=== PATIENT | female | born 1990 | race Caucasian/White ===

== ENCOUNTER → 2017-08-19 18:47 | Outpatient (CLI) | payer MEDICAID, SELFPAY ==
[2017-08-19 20:50] LABS: Chlamydia Trachomatis by PCR Negative (Negative); Neisserai gonorrhoeae by PCR Negative (Negative); Probe Check PASS; Sample Adequacy Control PASS; Specimen Processing Control PASS
[2017-08-22 14:18] LABS: HPV Reflexed? NOT INDICATED
== END ==
PROVIDERS: Visit Provider Obstetrics & Gynecology
DX: Z12.4 Encounter for screening for malignant neoplasm of cervix (principal); Z32.01 Encounter for pregnancy test, result positive; Z11.3 Encounter for screening for infections with a predominantly sexual mode of transmission
CPT/HCPCS: 87491; 87591; 88175; G0145

== ENCOUNTER → 2017-09-03 15:11 | Outpatient (CLI) | payer MEDICAID, SELFPAY ==
[2017-09-03 16:00] LABS: Color, Urine Yellow (Yellow); Glucose, Dipstick Normal (Normal); Ketone-Dipstick Negative (Negative); Leukocyte Esterase-Dipstick 500 /ul (Negative); Nitrite-Dipstick Negative (Negative); Occult Blood-Urine Negative /ul (Negative); Protein-Dipstick Negative (Negative); Specific Gravity, Urine 1.015 (1.002-1.030); Urine Bilirubin Dipstick Negative (Negative); Urine Clarity Sl. Cloudy (Clear); Urine Urobilinogen 1 mg/dl (Normal)
[2017-09-03 16:03] LABS: Absolute Lymphocyte Count 1.68 X10^3/ul (0.83-4.51); Absolute Neutrophil Count 5.2 X10^3/uL (2.0-7.7); Basophil# 0.01 X10^3/uL; Basophil% 0.1 % (0-1); Eosinophil# 0.11 X10^3/uL; Eosinophils% 1.5 % (0-5); Hematocrit 39.6 % (37-47); Hemoglobin 13.3 g/dl (12.0-15.0); Lymphocyte # 1.68 X10^3/ul (4.0); Lymphocyte % 22.5 % (19-41); Mean Corp Hgb Conc 33.6 g/gl (32-36); Mean Corpuscular Hgb 30.8 pg (27.0-32.0); Mean Corpuscular Volume 91.7 fL (81-99); Mean Platelet Vol. 12.8 fl (6.2-12.0); Monocyte# 0.43 X10^3/uL; Monocyte% 5.8 % (0-10); Neutrophil # 5.23 X10^3/uL (2.7-7.7); POSITIVE COUNT NO; POSITIVE DIFFERENTIAL NO; POSITIVE MORPHOLOGY NO; Platelet Count 120 K/mm3 (150-450); RBC Distribution Width CV 12.6 % (11.6-14.6); RBC Distribution Width SD 42.4 fl (35.1-43.9); Red Blood Count 4.32 M/mm3 (4.2-5.4); White Blood Count 7.5 K/mm3 (4.4-11.0)
[2017-09-03 16:27] LABS: Free T3 2.8 pg/mL (2.18-3.98); T4 Free Direct 0.89 ng/dL (0.76-1.46)
[2017-09-03 16:34] LABS: Amphetamine Urine VISTA NEGATIVE (<1000 ng/mL); Barbiturate Urine VISTA NEGATIVE (< 200 ng/mL); Benzodiazepine Urine VISTA NEGATIVE (< 200 ng/mL); COTININE Drug Screen Positive (<200 ng/mL); Cocaine Urine VISTA NEGATIVE (< 300 ng/mL); Ecstacy Urine VISTA NEGATIVE (< 500 ng/mL); Methadone Urine VISTA NEGATIVE (< 300 ng/mL); PCP Urine VISTA NEGATIVE (< 25 ng/mL); THC Urine VISTA NEGATIVE (< 50 ng/mL); Vista UDS pH Range 7
[2017-09-03 17:01] LABS: HIV - WCH Non-Reactive (Nonreactive); Rubella IgG 214.2 IU/mL
[2017-09-05 03:15] LABS: Prenatal RPR NONREACTIVE (NONREACTIVE)
[2017-09-05 09:04] LABS: HEPATITIS B SURFACE AG Negative (Negative); Hep C Antibodies <0.1 s/co ratio (0.0-0.9)
== END ==
PROVIDERS: Visit Provider Obstetrics & Gynecology
DX: Z34.81 Encounter for supervision of other normal pregnancy, first trimester (principal)
CPT/HCPCS: 36415; 80307; 81002; 84439; 84443; 84481; 85025; 86703; 86762; 86803; 87340

== ENCOUNTER → 2017-10-29 16:02 | Outpatient (CLI) | payer MEDICAID, SELFPAY ==
[2017-10-29 17:03] LABS: Hematocrit 35.8 % (37-47); Hemoglobin 12.2 g/dl (12.0-15.0); Mean Corp Hgb Conc 34.1 g/gl (32-36); Mean Corpuscular Hgb 30.6 pg (27.0-32.0); Mean Corpuscular Volume 89.7 fL (81-99); Mean Platelet Vol. 12.5 fl (6.2-12.0); Platelet Count 134 K/mm3 (150-450); RBC Distribution Width CV 13.3 % (11.6-14.6); RBC Distribution Width SD 43.6 fl (35.1-43.9); Red Blood Count 3.99 M/mm3 (4.2-5.4); White Blood Count 10.9 K/mm3 (4.4-11.0)
[2017-10-29 17:40] LABS: Scan Indicated on CBC? Y/N NO
== END ==
PROVIDERS: Visit Provider Obstetrics & Gynecology
DX: Z34.82 Encounter for supervision of other normal pregnancy, second trimester (principal)
CPT/HCPCS: 36415; 85027

== ENCOUNTER → 2017-12-24 15:03 | Outpatient (CLI) | payer MEDICAID, SELFPAY ==
[2017-12-24 17:21] LABS: Hemoglobin 12.6 g/dl (12.0-15.0); Mean Corpuscular Hgb 32.6 pg (27.0-32.0); Mean Platelet Vol. 12.4 fl (6.2-12.0); Platelet Count 127 K/mm3 (150-450); RBC Distribution Width CV 13.2 % (11.6-14.6); RBC Distribution Width SD 43.3 fl (35.1-43.9); Red Blood Count 3.87 M/mm3 (4.2-5.4); White Blood Count 12.5 K/mm3 (4.4-11.0)
[2017-12-24 17:25] LABS: Scan Indicated on CBC? Y/N NO
[2017-12-24 17:33] LABS: Free T3 2.3 pg/mL (2.18-3.98); Glucose Challenge Gest 1H 50g 82 mg/dL (70-140); T4 Free Direct 0.85 ng/dL (0.76-1.46); Thyroid Stim Hormone (TSH) 1.38 uIU/mL (0.358-3.74)
== END ==
PROVIDERS: Visit Provider Obstetrics & Gynecology
DX: Z34.83 Encounter for supervision of other normal pregnancy, third trimester (principal)
CPT/HCPCS: 36415; 82950; 84439; 84443; 84481; 85027

== ENCOUNTER → 2018-02-11 13:53 | Outpatient (CLI) | payer MEDICAID, SELFPAY ==
[2018-02-11 14:25] LABS: ROM Internal Control Test YES-OK TO RESULT pt. (Internal QC)
[2018-02-11 14:27] LABS: ROM Patient Test Negative (Negative)
[2018-02-11 15:40] LABS: Group B Strep DNA By PCR Negative (Negative); Internal Control PASS; Probe Check PASS; Specimen Processing Control PASS
== END ==
PROVIDERS: Visit Provider Obstetrics & Gynecology
DX: Z36.85 Encounter for antenatal screening for Streptococcus B (principal)
CPT/HCPCS: 84112; 87081; 87653

== ENCOUNTER 2018-02-11 20:57 | Outpatient (CLI) | payer MEDICAID, SELFPAY ==
[2018-02-11 21:17] VITALS: BMI 28.4
[2018-02-11 21:19] LABS: Mucous, Urine 0 SEEN /hpf (<or=2+)
[2018-02-11 21:27] LABS: Color, Urine Yellow (Yellow); Glucose, Dipstick Normal (Normal); Ketone-Dipstick Negative (Negative); Leukocyte Esterase-Dipstick 25 /ul (Negative); Nitrite-Dipstick Negative (Negative); Occult Blood-Urine 150 /ul (Negative); Protein-Dipstick Negative (Negative); Urine Bilirubin Dipstick Negative (Negative); Urine Clarity Clear (Clear); Urine Urobilinogen Normal (Normal)
[2018-02-11 21:36] LABS: Bacteria 2+ /hpf (None Seen); Red Blood Cells-Urine 0-5 SEEN /hpf (0-5); Squamous Epithelial Cells - UA 0-5 SEEN /hpf (5-10); White Blood Cells 0-5 SEEN /hpf (0-5)
[2018-02-11] MEDS: oxyCODONE 5 MG Tablet 10 MG PO (21:37)
--- NOTE | 2018-02-12 00:43 | OB.TRI.NOTE ---
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 No signs of SROm. Given PO oxycodone for pain and discharged home. Pain likely back pain due to head position.
--- NOTE | 2018-02-12 00:55 | OB.TRI.HP_ITS ---
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 No signs of SROm. Given PO oxycodone for pain and discharged home. Pain likely back pain due to head position.
== END 2018-02-11 22:40 | disposition home or self-care (01) ==
LOC: WPOUT 20:58 → WP 02-12 08:22
PROVIDERS: Visit Provider Obstetrics & Gynecology
DX: O26.893 Other specified pregnancy related conditions, third trimester (principal); R10.2 Pelvic and perineal pain; M54.9 Dorsalgia, unspecified
CPT/HCPCS: 59025; 59050; 81001; 84112; 87081; 87653; 99218; G0378

== ENCOUNTER 2018-02-19 20:45 | Outpatient (CLI) | payer MEDICAID, SELFPAY ==
[2018-02-19 21:14] VITALS: BMI 29.7
[2018-02-19 21:40] VITALS: RESP 18
--- NOTE | 2018-02-19 23:21 | OB.TRI.NOTE ---
History of Present Illness Date of Service: 02/19/18 Was patient seen by the physician?: No Reason For Visit: R/O LABOR Date of Service: 02/19/18 Final NIKKIE: 03/18/18 Final NIKKIE Source: US <20 weeks Gestational age: 36 Weeks and 1 Days History of Present Illness: 27 y o female at 36 1/7 wk presents with multiple somatic C/O. 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 C/O ankles swelling, fatigue, feeling like she is going to pass out. vaginal bleeding, passing clumps of blood (with discussion with nurse, this was mucousy glob, mucous plug with some bloody streaks) C/O back pain, maybe having UCs. Allergies adhesive tape Allergy (Verified 02/19/18 21:15) Itching codeine Allergy (Verified 02/19/18 21:15) Itching Physical Exam Vitals: Vital Signs Resp 18 02/19/18 21:40 Cervix Dilation (cm): 1 Station: -3 Effacement (%): 25 - RN check. NST - FHR Rate Baby A Baseline: 110-120s avg variability. + Accels to 160s Variability:: Moderate Accelerations:: 15 x 15 Decelerations:: None NST Reactive:: Yes, Appropriate for gestational age FHR Category:: Category I Uterine Activity:: No UCs noted Impression/Plan 36 1/7 wk false labor. Home NST reactive No UCs Comfort measures, rest, take Flexeril given for back pain in addition to tylenol prn Chiropractor again recommended for back / sciatic pain. Keep appt in ofc as scheduled. Return to hospital if inc s/sx of labor.
--- NOTE | 2018-02-19 23:25 | OB.TRI.HP_ITS ---
History of Present Illness Date of Service: 02/19/18 Was patient seen by the physician?: No Reason For Visit: R/O LABOR Date of Service: 02/19/18 Final NIKKIE: 03/18/18 Final NIKKIE Source: US <20 weeks Gestational age: 36 Weeks and 1 Days History of Present Illness: 27 y o female at 36 1/7 wk presents with multiple somatic C/O. 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 C/O ankles swelling, fatigue, feeling like she is going to pass out. vaginal bleeding, passing clumps of blood (with discussion with nurse, this was mucousy glob, mucous plug with some bloody streaks) C/O back pain, maybe having UCs. Allergies adhesive tape Allergy (Verified 02/19/18 21:15) Itching codeine Allergy (Verified 02/19/18 21:15) Itching Physical Exam Vitals: Vital Signs Resp 18 02/19/18 21:40 Cervix Dilation (cm): 1 Station: -3 Effacement (%): 25 - RN check. NST - FHR Rate Baby A Baseline: 110-120s avg variability. + Accels to 160s Variability:: Moderate Accelerations:: 15 x 15 Decelerations:: None NST Reactive:: Yes, Appropriate for gestational age FHR Category:: Category I Uterine Activity:: No UCs noted Impression/Plan 36 1/7 wk false labor. Home NST reactive No UCs Comfort measures, rest, take Flexeril given for back pain in addition to tylenol prn Chiropractor again recommended for back / sciatic pain. Keep appt in ofc as scheduled. Return to hospital if inc s/sx of labor.
== END 2018-02-19 21:40 | disposition home or self-care (01) ==
LOC: WPOUT 21:07 → WP 21:08
PROVIDERS: Visit Provider Obstetrics & Gynecology
DX: O47.03 False labor before 37 completed weeks of gestation, third trimester (principal); Z3A.36 36 weeks gestation of pregnancy
CPT/HCPCS: 59025; 59050; 99218; G0378

== ENCOUNTER 2018-02-21 22:40 | Outpatient (CLI) | payer MEDICAID, SELFPAY ==
[2018-02-21 22:59] LABS: Mucous, Urine 0 SEEN /hpf (<or=2+); Red Blood Cells-Urine 0 SEEN /hpf (0-5)
[2018-02-21 23:08] VITALS: BMI 28.8
[2018-02-21 23:09] LABS: Color, Urine Yellow (Yellow); Glucose, Dipstick Normal (Normal); Ketone-Dipstick Negative (Negative); Leukocyte Esterase-Dipstick 500 /ul (Negative); Nitrite-Dipstick Negative (Negative); Occult Blood-Urine Negative /ul (Negative); Protein-Dipstick 30 mg/dl (Negative); Urine Clarity Clear (Clear); Urine Urobilinogen 1 mg/dl (Normal)
[2018-02-21 23:14] LABS: Urine Bilirubin Dipstick 1 mg/dL (Negative)
[2018-02-21 23:15] LABS: White Blood Cells 0-5 SEEN /hpf (0-5)
[2018-02-21 23:16] LABS: Bacteria RARE /hpf (None Seen); Squamous Epithelial Cells - UA 0-5 SEEN /hpf (5-10)
[2018-02-21 23:35] LABS: ROM Internal Control Test YES-OK TO RESULT pt. (Internal QC); ROM Patient Test Negative (Negative)
--- NOTE | 2018-02-23 07:30 | OB.TRI.NOTE ---
History of Present Illness Was patient seen by the physician?: No Reason For Visit: R/O LABOR Date of Service: 02/21/18 Final NIKKIE: 03/18/18 Final NIKKIE Source: US <20 weeks Gestational age: 36 Weeks and 3 Days History of Present Illness: 36+ week intrauterine presents with some contractions to rule out labor. Allergies adhesive tape Allergy (Verified 02/21/18 23:09) Itching codeine Allergy (Verified 02/21/18 23:09) Itching NST - FHR Rate Baby A NST Reactive:: Yes FHR Category:: Category I Impression/Plan 36+ week intrauterine with reactive nonstress test and nonthreatening cervical examination. After observation no change noted. Urinalysis okay. Released to home with routine instructions and follow-up.
== END 2018-02-21 23:55 | disposition home or self-care (01) ==
LOC: WPOUT 22:51 → WP 22:52
PROVIDERS: Visit Provider Obstetrics & Gynecology
DX: Z34.93 Encounter for supervision of normal pregnancy, unspecified, third trimester (principal); Z88.5 Allergy status to narcotic agent
CPT/HCPCS: 59025; 59050; 81001; 84112; 99218; G0378

== ENCOUNTER 2018-02-23 18:40 | Outpatient (CLI) | payer MEDICAID, SELFPAY ==
[2018-02-23 19:17] VITALS: BMI 29.2
[2018-02-23 19:51] LABS: Bacteria 0 SEEN /hpf (None Seen); Mucous, Urine 0 SEEN /hpf (<or=2+); Red Blood Cells-Urine 0 SEEN /hpf (0-5); White Blood Cells 0 SEEN /hpf (0-5)
[2018-02-23] MEDS: Albuterol 2.5 MG/3 ML VIAL.NEB. INHALATION (20:11)
[2018-02-23 20:12] VITALS: RESP 16
[2018-02-23 20:15] LABS: Color, Urine Yellow (Yellow); Glucose, Dipstick Normal (Normal); Ketone-Dipstick Negative (Negative); Leukocyte Esterase-Dipstick Negative /ul (Negative); Nitrite-Dipstick Negative (Negative); Occult Blood-Urine Negative /ul (Negative); Protein-Dipstick Negative (Negative); Specific Gravity, Urine 1.005 (1.002-1.030); Urine Bilirubin Dipstick Negative (Negative); Urine Clarity Clear (Clear); Urine Urobilinogen Normal (Normal)
[2018-02-23] MEDS: Ondansetron ODT 4 MG Tablet 8 MG PO (20:26)
[2018-02-23 20:38] LABS: Squamous Epithelial Cells - UA 0-5 SEEN /hpf (5-10)
[2018-02-23 20:44] LABS: Hematocrit 33.8 % (37-47); Hemoglobin 11.3 g/dl (12.0-15.0); Mean Corp Hgb Conc 33.4 g/gl (32-36); Mean Corpuscular Hgb 30.5 pg (27.0-32.0); Mean Corpuscular Volume 91.1 fL (81-99); Mean Platelet Vol. 11.7 fl (6.2-12.0); Platelet Count 103 K/mm3 (150-450); RBC Distribution Width CV 13.8 % (11.6-14.6); Red Blood Count 3.71 M/mm3 (4.2-5.4)
[2018-02-23 20:50] LABS: Scan Indicated on CBC? Y/N NO
[2018-02-23] MEDS: MethylPREDNISolone DosePak 4 MG BOX 24 MG PO (20:50)
--- NOTE | 2018-02-24 07:38 | OB.TRI.NOTE ---
History of Present Illness Date of Service: 02/23/18 Was patient seen by the physician?: Yes Reason For Visit: R/O LABOR Date of Service: 02/23/18 Final NIKKIE: 03/18/18 Final NIKKIE Source: US <20 weeks Gestational age: 36 Weeks and 5 Days History of Present Illness: 27 yo female at 36 5/7 wk with multiple somatic c/o and in and out of hospital over the last week. Last appt in ofc 02/18/18 with PATRICIA 11.6 cm and approx 5 1/2# fetus noted , vtx presentation. Has been c/o back pain, pelvic pain. No UTI sx. C/O leg numbness today. No CC of back pain but states feeling of chest pressure, heaviness. Has h/o asthma and had not taken her Singulair for several days. Just picked up RX today to take this along with the Flexeril given for her back pain at last ofc visit. States chills, has not taken her temp. No cough, but states SOB and having problems d/t her asthma. Told triage nurse in ofc that she Feels like Tried her albuterol inhaler at home but still with CC of chest heaviness. Also c/o nausea and not able to eat anything, but able to keep down water. H/O thrombocytopenia. Due for Plt check also. Allergies adhesive tape Allergy (Verified 02/21/18 23:09) Itching codeine Allergy (Verified 02/21/18 23:09) Itching - Pertinent Past Medical History Medical History: Past Medical History (Last Updated 02/24/18 @ 07:42 by Madelin Zhao MD) Asthma affecting in third trimester Review of Systems Constitutional: Reports: Chills. Denies: Fever Eyes: Denies: Blurred vision Cardiovascular: Reports: Chest Pressure, Heaviness Respiratory: Denies: Cough, Sputum production Gastrointestinal: Reports: Abdominal Pain Genitourinary: Denies: Dysuria Physical Exam Vitals: Vital Signs Resp 16 02/23/18 20:12 General: Alert, Oriented x3, Cooperative, No apparent distress HEENT: Atraumatic Cardiovascular: Regular rate, Regular Rhythm Lungs: Rales, Rhonchi, Wheezes Abdomen: Soft, Non Tender, Gravid Neurological: Cranial nerves II-XII grossly intact Estimated gestational size: Appropriate for gestational size Presentation: Cephalic NST - FHR Rate Baby A Baseline: 120-130s with avg variability. Accels to 170s Variability:: Moderate Accelerations:: 15 x 15 Decelerations:: Variable - less than 10 sec to 100 with quick return NST Reactive:: Yes, Appropriate for gestational age FHR Category:: Category I Uterine Activity:: no regular UCs Impression/Plan #1) 36 5/7 wk EGA with acute asthmatic exacerbation. Just resumed her Singulair -CBC -Albuterol neb per RT tonight PAVITHRA -Medrol dose pack started tonight #2) Nausea --Xofran prn -- UA shows well hydrated, no ketones. HOME #3) Thrombocytopenia hx --CBC Plts 103K Will need close observation. Advised may consider induction for multiple somatic c/o related to , AFTER 39 wks. Keep ofc appt as scheduled.
== END 2018-02-23 21:30 | disposition home or self-care (01) ==
LOC: WPOUT 18:53 → WP 02-24 06:48
PROVIDERS: Obstetrics & Gynecology; Visit Provider Obstetrics & Gynecology
DX: O99.513 Diseases of the respiratory system complicating pregnancy, third trimester (principal); J45.901 Unspecified asthma with (acute) exacerbation; Z3A.36 36 weeks gestation of pregnancy; Z88.5 Allergy status to narcotic agent
CPT/HCPCS: 36415; 59025; 59050; 81001; 85027; 94640; 99218; G0378

== ENCOUNTER 2018-03-01 13:00 | Outpatient (CLI) | payer MEDICAID, SELFPAY ==
[2018-03-01 13:42] VITALS: BMI 28.9
[2018-03-01 14:01] LABS: ROM Internal Control Test YES-OK TO RESULT pt. (Internal QC); ROM Patient Test Negative (Negative)
--- NOTE | 2018-03-09 07:51 | OB.TRI.NOTE ---
History of Present Illness Date of Service: 03/01/18 Reason For Visit: R/O ROM Date of Service: 03/01/18 Final NIKKIE: 03/18/18 Final NIKKIE Source: US <20 weeks Gestational age: 37 Weeks and 3 Days History of Present Illness: presents with aches and pains, and ? SROM Allergies adhesive tape Allergy (Verified 03/09/18 05:33) Itching codeine Allergy (Verified 03/09/18 05:33) Itching - Pertinent Past Medical History Medical History: Past Medical History (Last Updated 02/24/18 @ 07:42 by Madelin Zhao MD) Asthma affecting in third trimester NST - FHR Rate Baby A Variability:: Moderate Accelerations:: 15 x 15 Decelerations:: None NST Reactive:: Yes FHR Category:: Category I Uterine Activity:: irreg UCs Impression/Plan 37 3/7 wk FALSE LABOR NEG ROM Musculoskeletal pains Home. Comfort measures.
== END 2018-03-01 14:25 | disposition home or self-care (01) ==
LOC: WPOUT 13:34 → WP 13:35
PROVIDERS: Visit Provider Obstetrics & Gynecology
DX: O47.1 False labor at or after 37 completed weeks of gestation (principal); Z3A.37 37 weeks gestation of pregnancy; Z88.5 Allergy status to narcotic agent
CPT/HCPCS: 59025; 59050; 84112; 99218; G0378

== ENCOUNTER 2018-03-05 19:27 | Outpatient (CLI) | payer MEDICAID, SELFPAY ==
[2018-03-05 19:50] VITALS: BMI 28.9
[2018-03-05 20:23] LABS: ROM Internal Control Test YES-OK TO RESULT pt. (Internal QC); ROM Patient Test Negative (Negative)
--- NOTE | 2018-03-05 23:00 | OB.TRI.NOTE ---
- Problem List (1) 38 weeks gestation of Status: Acute (2) False labor after 37 completed weeks of gestation Status: Acute History of Present Illness Date of Service: 03/05/18 Was patient seen by the physician?: No Reason For Visit: R/O SROM Date of Service: 03/05/18 Final NIKKIE: 03/18/18 Final NIKKIE Source: US <20 weeks Gestational age: 38 Weeks and 3 Days History of Present Illness: 27yo with c/o contractions and leaking of fluid. Allergies adhesive tape Allergy (Verified 03/05/18 19:52) Itching codeine Allergy (Verified 03/05/18 19:52) Itching - Pertinent Past Medical History Medical History: Past Medical History (Last Updated 02/24/18 @ 07:42 by Madelin Zhao MD) Asthma affecting in third trimester Physical Exam Cervix Dilation (cm): 2 - per RN Station: -2 Effacement (%): 60 NST - FHR Rate Baby A Baseline: 130 Variability:: Moderate Accelerations:: 15 x 15 Decelerations:: None NST Reactive:: Yes FHR Category:: Category I Uterine Activity:: 0/10 min Impression/Plan False labor at 38 weeks ROM plus neg d/c ane
== END 2018-03-05 21:30 | disposition home or self-care (01) ==
LOC: WPOUT 19:48 → WP 19:48
PROVIDERS: Visit Provider Obstetrics & Gynecology
DX: O47.1 False labor at or after 37 completed weeks of gestation (principal); Z3A.38 38 weeks gestation of pregnancy; Z88.5 Allergy status to narcotic agent
CPT/HCPCS: 59025; 59050; 84112; 99218; G0378

== ENCOUNTER 2018-03-09 04:54 | Inpatient (IN) | payer MEDICAID, SELFPAY ==
[2018-03-09 05:31] VITALS: BMI 28.6
[2018-03-09] MEDS: Lactated Ringers 1,000 ML 50 ML IV ×3 (05:35→10:14)
[2018-03-09 05:52] LABS: Hematocrit 36.4 % (37-47); Hemoglobin 12.4 g/dl (12.0-15.0); Mean Corp Hgb Conc 34.1 g/gl (32-36); Mean Corpuscular Hgb 31.2 pg (27.0-32.0); Mean Corpuscular Volume 91.7 fL (81-99); Mean Platelet Vol. 12.8 fl (6.2-12.0); Platelet Count 133 K/mm3 (150-450); RBC Distribution Width CV 13.6 % (11.6-14.6); RBC Distribution Width SD 44.9 fl (35.1-43.9); Red Blood Count 3.97 M/mm3 (4.2-5.4); White Blood Count 11.3 K/mm3 (4.4-11.0)
[2018-03-09 06:04] LABS: Scan Indicated on CBC? Y/N NO
[2018-03-09] MEDS: fentaNYL-bupivacaine (epidural) 100 ML BAG EPIDURAL ×2 (07:06→11:52)
[2018-03-09] MEDS: Oxytocin 30 units/NS 500 ml 30 UNITS/500 ML IV.SOLN IV (08:57)
[2018-03-09] MEDS: Oxytocin 30 units/NS 500 ml 30 UNITS/500 ML IV.SOLN 334 UNITS IV (13:01)
--- NOTE | 2018-03-09 13:13 | DCINST_ITS ---
Discharge Diet: No Restrictions Discharge Activity: May Shower, May Take a Tub Bath May resume sexual activity in: 4-6 weeks Additional Activity Instructions:: Nothing in the vagina for 4-6 weeks. You may return to work/school in 6 weeks. Call your doctor if you observe: Fever of 101 or Higher, Inability to urinate, Inability to have a bowel movement, Using more than one pad per hour Additional Instructions: If you experience any of the following, contact your healthcare provider. * Bleeding that soaks a pad every hour for 2 hours * Fever 100.4 or higher * Unrelieved incision or abdominal pain * Swelling, redness, discharge or bleeding from your incision or episiotomy site * Your incision begins to separate * Problems urinating (including inability to urinate or burning while urinating). * Visual changes * Severe headache * Flu-like symptoms * Pain or redness in one of both of your breasts * Pain, warmth, tenderness or swelling in your legs, especially the calf area * Frequent nausea and vomiting * Symptoms of depression or anxiety If you experience any of the following, call 911 or go to the nearest Emergency Room. * Chest pain * Problems breathing * Seizure activity * Partial or complete paralysis of a body part, slurred speech, weakness or drooping of the face, or a sudden inability to walk or hold your balance Allergies/Adverse Reactions: Allergies adhesive tape Allergy (Verified 03/09/18 05:33) Itching codeine Allergy (Verified 03/09/18 05:33) Itching Medications to take at Discharge Albuterol Inhaler 1 - 2 puff INHALATION Q4H PRN PRN 02/11/18 Montelukast [Singulair] 1 tab PO DAILY 02/11/18 Vits [Prenatabs FA] 1 tablet PO DAILY 02/19/18 Please Follow Up With: John Bright MD - [phone] When: Call to make an appointment with your doctor in 6 weeks. Primary Care Physician: Care Physician,No Primary [Primary Care Provider] - Test Results: Test results from this visit will be discussed in further detail at your follow- up appointment, if applicable.
--- NOTE | 2018-03-09 13:13 | OP.PCM_ITS ---
Vaginal Delivery Maternal Presentation: Active Labor Amniotic Membrane Rupture Type: Artificial Amniotic Fluid Description: Clear Final NIKKIE: 03/18/18 Final NIKKIE Source: US <20 weeks Gestational age: 38 Weeks and 5 Days Date of Procedure: 03/09/18 Pre-Operative Diagnosis: IUP Post-Operative Diagnosis: IUP Surgery/ Procedure Performed: Spontaneous Vaginal Delivery Type of Anesthesia: Epidural Description of Procedure: Spontaneous vaginal delivery of a viable female infant with Apgars of 8/9 from an occiput anterior presentation with clear amniotic fluid and normal three- vessel placenta. No episiotomy or lacerations. Sponge counts okay. Delivery physician: Fidel Gomez MD. Presentation: Vertex Placental Delivery Description: Spontaneous Placenta Disposition: [facility] Cord Vessel Description: 3 Vessels Cord Entanglement: None Estimated Blood Loss: 250 cc Infant A gender: Female (1 minute): 8 (5 minute): 9 Episiotomy Description: None Laceration: None Medications given after delivery: IV Pitocin Complications: None
[2018-03-09] MEDS: Oxytocin 30 units/NS 500 ml 30 UNITS/500 ML IV.SOLN 167 UNITS IV (13:31)
[2018-03-09] MEDS: 0.9% Saline Lock 10 ML Syringe IV (15:30)
[2018-03-09 21:09] VITALS: BP 114/62; PULSE 72; RESP 16; TEMP 36.6; O2SAT 95
[2018-03-09] MEDS: Ibuprofen 600 MG Tablet PO (21:25)
[2018-03-09] MEDS: Montelukast 10 MG Tablet PO (21:25)
[2018-03-10 00:05] VITALS: BP 107/47; PULSE 62; RESP 16; TEMP 37; O2SAT 95
[2018-03-10 03:58] VITALS: BP 116/52; PULSE 49; RESP 15; TEMP 36.6; O2SAT 96
[2018-03-10 08:00] VITALS: BP 119/60; PULSE 58; RESP 20; TEMP 36.6
--- NOTE | 2018-03-10 08:21 | PCM.PN.OB ---
Subjective: PPD#1 Doing well. Would like to go home. Daughter at home is missing hr, 2 yrs old. Bottle feeding Pain control adequate. No concerns voiced. - Physical Exam General: Alert, Oriented x3, Cooperative, No apparent distress HEENT: Atraumatic Neck: Supple Abdomen: Soft - Fundus firm NT at inferior to umbilicus Extremities: No clubbing, No cyanosis, No edema Neurological: Cranial nerves II-XII grossly intact Psych/Mental Status: Normal Affect Vital Signs Temp Pulse Resp BP Pulse Ox 97.9 F 49 L 15 116/52 L 96 03/10/18 03:58 03/10/18 03:58 03/10/18 03:58 03/10/18 03:58 03/10/18 03:58 Oxygen Delivery Method Room Air Weight: 78.018 kg Body Mass Index (BMI) 28.6 Intake and Output for Last 24 Hours 03/08/18 03/09/18 03/10/18 23:59 23:59 23:59 Intake Total 3803 / 3803 Output Total 1400 / 1400 Balance 2403 / 2403 Medical Necessity - Tobacco Use Smoking Status: Current every day smoker Assessment/Plan All Active Problems (Last Updated 02/24/18 @ 07:42 by Madelin Zhao MD) 38 weeks gestation of (Acute) False labor after 37 completed weeks of gestation (Acute) PPD#1 Stable pp. Dischg home today after infant screening completed. RTO in 6 wk for pp check as scheduled, prn sooner.
[2018-03-10 12:30] VITALS: BP 107/68; PULSE 67; RESP 16; TEMP 36.3
== END 2018-03-10 16:20 | disposition home or self-care (01) | DRG 373 ==
PROVIDERS: Admitting Provider Obstetrics & Gynecology; Visit Provider Obstetrics & Gynecology
DX: O99.334 Smoking (tobacco) complicating childbirth (principal); Z3A.38 38 weeks gestation of pregnancy; Z37.0 Single live birth
CPT/HCPCS: 59050; 85027; 86850; 86900; 99218; J7120; A4216; G0378

== ENCOUNTER → 2018-08-25 16:41 | Outpatient (CLI) | payer MEDICAID, SELFPAY ==
[2018-08-25 18:14] LABS: hCG Titer Quant., Serum < 1 mIU/mL (<9 non-preg)
[2018-08-25 18:21] LABS: Free T3 2.7 pg/mL (2.18-3.98); Thyroid Stim Hormone (TSH) 1.54 uIU/mL (0.358-3.74)
[2018-08-25 18:23] LABS: Progesterone Level 0.28 ng/mL (See Comment)
== END ==
PROVIDERS: Visit Provider Obstetrics & Gynecology
DX: R53.83 Other fatigue (principal); Z30.014 Encounter for initial prescription of intrauterine contraceptive device; Z30.8 Encounter for other contraceptive management
CPT/HCPCS: 36415; 84144; 84439; 84443; 84481; 84702

== ENCOUNTER → 2018-08-27 11:52 | Outpatient (CLI) | payer MEDICAID, SELFPAY ==
[2018-08-27 15:25] LABS: Chlamydia Trachomatis by PCR Negative (Negative); Neisserai gonorrhoeae by PCR Negative (Negative); Probe Check PASS; Sample Adequacy Control PASS; Specimen Processing Control PASS
== END ==
PROVIDERS: Visit Provider Obstetrics & Gynecology
DX: Z30.430 Encounter for insertion of intrauterine contraceptive device (principal); Z11.3 Encounter for screening for infections with a predominantly sexual mode of transmission
CPT/HCPCS: 87491; 87591

== ENCOUNTER → 2018-10-06 17:52 | Outpatient (CLI) | payer MEDICAID, SELFPAY ==
[2018-10-09 13:03] LABS: HPV Reflexed? NOT INDICATED
== END ==
PROVIDERS: Referring Provider Obstetrics & Gynecology; Visit Provider Obstetrics & Gynecology
DX: Z12.4 Encounter for screening for malignant neoplasm of cervix (principal)
CPT/HCPCS: 88175; G0145

== ENCOUNTER → 2020-04-14 13:30 | Outpatient (CLI) | payer MEDICAID, SELFPAY ==
[2020-04-18 03:07] LABS: Chlamydia By Nucleic Acid AMP Negative (Negative)
[2020-04-18 06:27] LABS: Gonococcus By Nucleic Acid AMP Negative (Negative)
== END ==
PROVIDERS: Visit Provider Obstetrics & Gynecology
DX: Z11.3 Encounter for screening for infections with a predominantly sexual mode of transmission (principal)
CPT/HCPCS: 87491; 87591

== ENCOUNTER 2023-08-14 16:52 | Outpatient (CLI) | payer MEDICAID, SELFPAY ==
[2023-08-14] VITALS (7 sets, daily range): BP systolic 121–142; BP diastolic 77–83; PULSE 56–68; RESP 18; TEMP 37; O2SAT 97; BMI 34.4
[2023-08-14 17:47] LABS: Hematocrit 32.8 % (37-47); Hemoglobin 10.9 g/dL (12.0-15.0); Mean Corp Hgb Conc 33.2 g/dL (32-36); Mean Corpuscular Hgb 29.5 pg (27.0-32.0); Mean Corpuscular Volume 88.9 fL (81-99); Mean Platelet Vol. 12.8 fl (6.2-12.0); Platelet Count 133 K/mm3 (150-450); RBC Distribution Width CV 13.9 % (11.6-14.6); Red Blood Count 3.69 M/mm3 (4.2-5.4); White Blood Count 10.5 K/mm3 (4.4-11.0)
[2023-08-14 17:59] LABS: AST(SGOT) 11 U/L (15-37); Alanine Aminotransfer ALT/SGPT 13 U/L (13-56); Creatinine, Serum 0.59 mg/dL (0.55-1.02); EST Glomerular Filtration Rate 124 mL/min (>60); Est Glom Filt Rate - Afr Amer 151 mL/min (>60); Estimated Creatinine Clearance 146.77 ml/min; Uric Acid 3.5 mg/dL (2.6-6.0)
[2023-08-14 18:02] LABS: Protein, Urine (Random) 12.7 mg/dL (<11.9); Protein:Creat Ratio 246 mg/g CRE (0-200)
--- OUTSIDE RECORDS SUMMARY | 2023-08-14 21:00 | XMS RPT_ITS | CCD ---
Author Name Unknown Address [address] [place] [address] Organization [facility] Care Team Providers Care Manager Community Name Role Phone ANGELA GARCIA Unavailable Unavailable SHAMA COOK Unavailable Unavailable LAUREN JEREZ CNP Unavailable UnavailANGELA Kohli Unavailable Unavailable JENNIFER HASTINGS DO Attending Unavailable JENNIFER HASTINGS DO Primary Care Unavailable JENNIFER HASTINGS DO Admitting Unavailable NO, DOCTOR ON Consulting Unavailable KEYSHAWN LOPES CNP Referring Unavailable KEYSHAWN LOPES CNP Consulting Unavailable JANY BUI Attending Unavailable JANY BUI Primary Care Unavailable JANY BUI Admitting Unavailable PROVIDER, UNKNOWN Consulting Unavailable PROVIDER, UNKNOWN Consulting Unavailable NO, DOCTOR ON Consulting Unavailable KEYSHAWN LOPES CNP Primary Care Unavailable KEYSHAWN LOPES CNP Admitting Unavailable KEYSHAWN LOPES CNP Attending Unavailable NO, DOCTOR ON Referring Unavailable NO, DOCTOR ON Consulting Unavailable JANY BUI Attending Unavailable JANY BUI Primary Care Unavailable JANY BUI M Admitting Unavailable KATIE CERNA DO Attending Unavailable KATIE CERNA DO Primary Care Unavailable KATIE CERNA DO Admitting Unavailable KEYSHAWN LOPES CNP Consulting Unavailable KEYSHAWN LOPES CNP Referring Unavailable PROVIDER, UNKNOWN Consulting Unavailable PROVIDER, UNKNOWN Consulting Unavailable Unavailable Primary Care Provider UnavailTAMICA Hernandez Consulting Unavailable BAYLEE BAIRD Admitting Unavailable BAYLEE BAIRD Attending Unavailable NWIZU, ALVIN CHERRY Attending Unavailabl e NWIZU, ALVIN CHERRY Admitting Unavailabl e NWIZU, ALVIN CHERRY Admitting Unavailabl e NWIZU, ALVIN CHERRY Attending Unavailabl e ADDI BURNS Referring Unavailable NWIZU, ALVIN CHERRY Admitting Unavailabl e NWIZU, ALVIN CHERRY Attending Unavailabl e IRA ALEXIS Attending Unavailable SELF Referring Unavailable MONIK GARCÍA Attending Unavailable MONIK GARCÍA Referring Unavailable ASHER WHARTON Attending Unavail able MONIK GARCÍA Referring Unavailable MARY BROWN Attending Unavailable ADDI BURNS Attending Unavailable ADDI BURNS Attending Unavailable MARY BROWN Attending Unavailable IRA ALEXIS Referring Unavailable JUSTINA PALAFOX Attending Unavailable ADDI BURNS Attending Unavailable MADELIN PAGE Attending Unavailable IRA ALEXIS Attending Unavailable Allergies Allergy Classification Reported Allergen(s) Allergy Type Date of Onset Reaction(s) Facility (3 sources) codeine; Translations: [CODEINE] Drug Allergy 7 [facility] Repository (1 source) Codeine Drug Allergy [facility] Repository (10 sources) Codeine Drug Allergy 3 Other: See Comments, Itching [facility] Work Phone: (5 sources) guaiFENesin; Translations: [GUAIFENESIN] Drug Allergy 4 Itching [facility] Medications Current Medications Medication Drug Class(es) Dates Sig (Normalized) Sig (Original) acetaminophen 325 mg / oxyCODONE hydrochloride 5 mg oral tablet (1 source) Opioid Agonist Start: 07-17-2023 End: 07-24-2023 take 1 tablet by mouth every six hours as needed for pain oxyCODONE-acetamin ophen (PERCOCET) 5-325 mg tablet Indications: 34 weeks gestation of , Flank pain , Acute right-sided back pain, unspecified back location Take 1 tablet by mouth every 6 hours as needed for pain for up to 7 days. 3 tablet 0 07/17/2023 07/24/2023 Active Completed/Discontinued Medications Medication Drug Class(es) Dates Sig (Normalized) Sig (Original) albuterol-budesonide HFA (AIRSUPRA) 90-80 mcg/actuation inhaler (2 sources) Start: 03-12-2023 albuterol-budesonid e HFA (AIRSUPRA) 90-80 mcg/actuation inhaler Take 2 Puffs by mouth as needed for wheezing/shortness of breath. 1 Each 1 03/12/2023 Active Problems Active Problems Problem Classification Problem Date Documented Date Episodic/Chronic Abdominal pain (4 sources) Flank pain; Translations: [Unspecified abdominal pain] Onset: 07-17-2023 07-17-2023 Episodic Complications of surgical procedures or medical care (2 sources) History of subtotal thyroidectomy; Translations: [Postprocedural hypothyroidism] Onset: 02-05-2023 02-05-2023 Chronic Diabetes mellitus without complication (4 sources) Increased glucose level; Translations: [Other abnormal glucose] Onset: 06-06-2023 07-17-2023 Episodic Diabetes or abnormal glucose tolerance complicating ; childbirth; or the puerperium (1 source) Abnormal glucose complicating ; Translations: [Abnormal maternal glucose tolerance, antepartum] Onset: 06-07-2023 Episodic External cause codes: Fall (1 source) Fall on same level from slipping, tripping and stumbling without subsequent striking against object, initial encounter; Translations: [Fall on same level from slipping, tripping and stumbling without subsequent striking against object, initial encounter] Onset: 12-21-2019 External cause codes: Unspecified (1 source) Activity, other specified; Translations: [Activity, other specified] Onset: 12-21-2019 Immunizations and screening for infectious disease (1 source) Patient encounter status; Translations: [Encounter for screening for human papillomavirus (HPV)] 02-05-2023 Episodic Other complications of (2 sources) Uncertain viability of ; Translations: [ with inconclusive viability, not applicable or unspecified] 02-05-2023 Episodic Other complications of (5 sources) Benign gestational thrombocytopenia; Translations: [Other diseases of the blood and blood-forming organs and certain disorders involving the immune mechanism complicating , third trimester] Onset: 07-17-2023 07-17-2023 Episodic Other complications of (4 sources) Reduced movement; Translations: [Decreased movements, third trimester, not applicable or unspecified] Onset: 07-17-2023 07-17-2023 Episodic Other complications of (1 source) High risk ; Translations: [Supervision of high risk , unspecified, third trimester] 08-07-2023 Episodic Other and delivery including normal (13 sources) Gestational age unknown ; Translations: [Encounter for supervision of normal , unspecified, unspecified trimester] Onset: 02-05-2023 3 Episodic Other screening for suspected conditions (not mental disorders or infectious disease) (2 sources) Encounter for screening for lipoid disorders; Translations: [Patient encounter status] Onset: 01-10-2020 02-05-2023 Episodic Other upper respiratory disease (1 source) Seasonal allergy; Translations: [Other seasonal allergic rhinitis] 03-12-2023 Chronic Residual codes; unclassified (1 source) Gestation period, 16 weeks; Translations: [16 weeks gestation of ] 03-12-2023 Episodic Residual codes; unclassified (1 source) Gestation period, 24 weeks; Translations: [24 weeks gestation of ] 05-08-2023 Episodic Residual codes; unclassified (4 sources) Gestation period, 34 weeks; Translations: [34 weeks gestation of ] Onset: 07-10-2023 07-17-2023 Episodic Residual codes; unclassified (1 source) 33 weeks gestation of ; Translations: [33 weeks gestation of ] Onset: 07-09-2023 Episodic Residual codes; unclassified (1 source) Gestation period, 37 weeks; Translations: [37 weeks gestation of ] 08-07-2023 Episodic Residual codes; unclassified (1 source) 24 weeks gestation of ; Translations: [24 weeks gestation of ] Onset: 06-05-2023 Episodic Spondylosis; intervertebral disc disorders; other back problems (4 sources) Backache; Translations: [Dorsalgia, unspecified] Onset: 07-17-2023 07-17-2023 Episodic Substance-related disorders (1 source) Nicotine dependence, cigarettes, uncomplicated; Translations: [NICOTINE DEPENDENCE, CIGARETTES, UNCOMPLICATED] Onset: 04-28-2017 Chronic Unclassified (1 source) Other specified postprocedural states; Translations: [OTHER SPECIFIED POSTPROCEDURAL STATES] Onset: 04-28-2017 Unclassified (3 sources) No additional problems on file Unclassified (1 source) OB 26 weeks, leaking fluid, contractions Onset: 05-29-2023 Past or Other Problems Problem Classification Problem Date Documented Da te Episodic/Chronic Allergic reactions (1 source) Allergy status to narcotic agent status; Translations: [ALLERGY STATUS TO NARCOTIC AGENT STATUS] Onset: 04-28-2017 Episodic Other complications of (1 source) with inconclusive viability, not applicable or unspecified; Translations: [ with uncertain viability, single or unspecified fetus] Onset: 02-05-2023 Episodic Other non-traumatic joint disorders (2 sources) Pain in left ankle and joints of left foot; Translations: [Pain in left ankle and joints of left foot] Onset: 12-21-2019 Episodic Other upper respiratory disease (1 source) Nasal congestion; Translations: [NASAL CONGESTION] Onset: 04-28-2017 Episodic Other upper respiratory infections (1 source) Acute sinusitis, unspecified; Translations: [ACUTE SINUSITIS, UNSPECIFIED] Onset: 04-28-2017 Episodic Sprains and strains (1 source) Sprain of unspecified ligament of left ankle, initial encounter; Translations: [Sprain of unspecified ligament of left ankle, initial encounter] Onset: 12-21-2019 Episodic Unclassified (1 source) FOOT INJURY AFTER FALL Onset: 12-04-2022 NEGATED: Highlighted row has been ruled out!Unclassified (2 sources) No known active problems 03-12-2023 Results Test Name Value Interpretation Reference Range Facil ity Vital Signs Date Time Vital Sign Value Performing Clinician Factracey litjesús 08-07-2023 16:02-0500 Body weight 90.08 kg Ira Alexis MD Work Phone: [facility] 08-07-2023 16:02-0500 Diastolic blood pressure 76 mm[Hg] Ira Alexis MD Work Phone: [facility] 08-07-2023 16:02-0500 Systolic blood pressure 120 mm[Hg] Ira Alexis MD Work Phone: [facility] 07-17-2023 15:44-0500 Body temperature 98.91 [degF] Madelin Page APRN.CERTIFIED LEGAL INVESTIGATOR Work Phone: [facility] 07-17-2023 15:44-0500 Body weight 86.64 kg Madelin Page APRN.CERTIFIED LEGAL INVESTIGATOR Work Phone: [facility] 07-17-2023 15:44-0500 Diastolic blood pressure 58 mm[Hg] Madelin Page APRN.CERTIFIED LEGAL INVESTIGATOR Work Phone: [facility] 07-17-2023 15:44-0500 Systolic blood pressure 120 mm[Hg] Madelin Page APRN.CERTIFIED LEGAL INVESTIGATOR Work Phone: [facility] 05-08-2023 08:14-0500 Body weight 81.74 kg Addi Burns MD Work Phone: [facility] 05-08-2023 08:14-0500 Diastolic blood pressure 68 mm[Hg] Addi Burns MD Work Phone: [facility] 05-08-2023 08:14-0500 Systolic blood pressure 112 mm[Hg] Addi Burns MD Work Phone: [facility] 03-12-2023 08:04-0400 Body weight 78.47 kg Mary Plotcandie RESIN FILTERER.CNM Work Phone: [facility] 03-12-2023 08:04-0400 Diastolic blood pressure 60 mm[Hg] Mary Plotts RESIN FILTERER.CNM Work Phone: [facility] 03-12-2023 08:04-0400 Systolic blood pressure 100 mm[Hg] Mary Plotcandie RESIN FILTERER.CNM Work Phone: [facility] 02-05-2023 07:59-0400 Body height 162.6 cm Monik García APRN.CERTIFIED LEGAL INVESTIGATOR Work Phone: [facility] 02-05-2023 07:59-0400 Body weight 78.93 kg Monik García APRN.CERTIFIED LEGAL INVESTIGATOR Work Phone: [facility] Encounters Encounter Date Encounter Type Care Provider Facility Start: 08-13-2023 ambulatory Ingrid Cook [facility] Procedures Date Procedure Procedure Detail Performing Clinician Start: 08-07-2023 URINE OB DIP B/O Ira espinosa MD Work Phone: Start: 07-17-2023 Urnls dip stick/tabl et rgnt auto w/o microscopy Madelin Page APRN.CERTIFIED LEGAL INVESTIGATOR Work Phone: Start: 07-17-2023 URINE OB DIP B/O Madelin Page APRN.CERTIFIED LEGAL INVESTIGATOR Work Phone: Start: 05-08-2023 URINE OB DIP B/O Addi Burns MD Work Phone: Start: 03-12-2023 URINE OB DIP B/O Samuel renee Trujillocandie RESIN FILTERER.ROMIANEM Work Phone: Start: 02-05-2023 Antibody screen IRA WOOD Plan of Treatment Date Care Activity Detail Author Start: 02-06-2028 HPV TESTING HPV TESTING [facility] Start: 06-19-2024 Covid-19 Vaccine (#1) Covid-19 Vacci ne (#1) [facility] Payers Date Payer Category Payer Medicaid [facility] MEDICAID [facility] MEDICAID [place] [id number] 2022-Present [phone] [address] [place] [address] Medicaid [id number] 2022 Medicaid [id number] 2016 Unknown [id number] 1989 Unknown [id number] 1989 Unknown [id number] 1989 Unknown [id number] 1989 Unknown [id number] Unknown [id number] Social History Date Type Detail Facility Tobacco smoking stat us ARIS Tobacco smoking consumption unknown [facility] Start: 1990 Sex Assigned At Not on file [facility] Start: 02-05-2023 End: 04-10-2023 Gender identity Not on file [facility] Start: 02-05-2023 End: 05-29-2023 Tobacco smoking status ARIS Smokes tobacco daily [facility] Work Phone: History of tobacco use Cigarette Smoker C [facility] Work Phone: Start: 02-05-2023 End: 04-10-2023 Cigarettes smoked current (pack per day) - Reported 0.5 [facility] Start: 02-05-2023 End: 05-29-2023 Tobacco use and exposure Smokeless tobacco non-user [facility] Work Phone: Start: 02-05-2023 End: 08-07-2023 Alcohol intake Ex-drinker (finding) [facility] Start: 12-04-2022 [facility] National Score (1-10 0), lower number is lower risk 62 [facility] Goals Date Patient Goal Desired Activity /State Personal health goal Clinical Notes 01-08-2023 to 08-13-2023 Ingrid Cruz MA - 08/13/2023 9:11 AM ESTPrenatal Quick Notes - Ira Alexis MD - 08/07/2023 4:10 PM ESTPatient InstructionsAddendum Note - Ira Alexis MD - 07/17/2023 5:20 PM EST Note Date & Type Note Facility 08-13-2023 Note Patient Outreach (NE TNAV) WALTER HOLLEY ([id number]) 1990 F Date Time Provider Department 08/13/23 INGRID CRUZ During your visit today, we recorded the following information about you: Ingrid Cruz MA 08/13/2023 10:15 AM Signed POPULATION HEALTH NAVIGATION OUTREACH Action/FYI Called and spoke with pt and confirmed pedodontist. Reason for Outreach Medicaid OB/Peds Patient Contacted: Spoke to patient/parent/or legal guardian Patient identified by name and : Yes Medicaid OB/Peds actions taken: /Interactive Media Marketing Director added Navigation Signature: Ingrid Bonds MA August 13, 2023 9:12 AM Allergies As of Date: 08/13/2023 Noted Allergy Reaction CODEINE 02/05/2023 9 - Itching 14 - Other: See Comments Comments: Only to codeine cough syrup - hives COUGH SYRUP (GUAIFENESIN) 07/09/2023 9 - Itching Date Reviewed: 08/10/2023 Reviewed by: Theodore Up RN - Fully Assessed Reason for Visit: Population Health Navigation Outreach [3910] Cmt: OB/peds Prescriptions as of 08/13/2023 - Omeprazole Magnesium 20 mg cpDR Take 1 capsule by mouth two times a day as needed (heartburn). - vit37/iron/folic acid (PRENATA ORAL) Take 1 tablet by mouth twice daily. gummy Problem List As Of Date 08/13/2023 Noted Resolved Supervision of other normal , antepart*04/10/2023 Elevated glucose [R73.09] 06/06/2023 34 weeks gestation of [Z3A.34] 07/10/2023 Gestational thrombocytopenia (HCC) [O99.119, D6*07/17/2023 Acute right-sided back pain [M54.9] 07/17/2023 Flank pain [R10.9] 07/17/2023 Decreased movements in third trimester [O*07/17/2023 Encounter Status:Closed by INGRID CRUZ on 08/13/23 [facility] 08-13-2023 Note HNO ID: [id number] Author: INGRID CRUZ MA Service: ? Author Type: Teacher Theater Arts Type: Progress Notes Filed: 08/13/2023 10:15 Note Text: POPULATION HEALTH NAVIGATION OUTREACH Action/FYI Called and spoke with pt and confirmed pedodontist. Reason for Outreach Medicaid OB/Peds Patient Contacted: Spoke to patient/parent/or legal guardian Patient identified by name and : Yes Medicaid OB/Peds actions taken: [place]/Interactive Media Marketing Director added Navigation Signature: Ingrid Bonds MA August 13, 2023 9:12 AM [facility] 08-13-2023 History of Presen t illness Narrative POPULATION HEALTH NAVIGATION OUTREACH Action/FYI Called and spoke with pt and confirmed pedodontist. Reason for Outreach Medicaid OB/Peds Patient Contacted: Spoke to patient/parent/or legal guardian Patient identified by name and : Yes Medicaid OB/Peds actions taken: [place]/Interactive Media Marketing Director added Navigation Signature: Ingrid Bonds MA August 13, 2023 9:12 AM documented in this encounter [facility] 08-10-2023 Note HNO ID: [id number] Author: MADELIN RIOS, RN Service: ? Author Type: Registered Nurse Type: Nursing Progress Note Filed: 08/10/2023 19:59 Note Text: Lab at bedside. Pt updated on [facility] 08-07-2023 Miscellaneous Notes SW- No ALVAREZ, vision changes. No regular ctx, vb, lof. Good FM. Having some irregular ctx's. Flank pain resolved. No urinary symptoms PE: Gen- NAD, well appearing Abd- Soft, gravid, NT +FHT S=D See flowsheet A/p 37 wk gestation - Labor precautions reviewed - Pt interested in elective IOL ~39-40 weeks - RTO 1 wk Ira Alexis DO documented in this encounter [facility] 08-07-2023 Instructions Riley Houston MA - 08/07/2023 4:01 PM EST SEQUENTIAL SCREENINGS The [facility] offers sequential screenings for women who are interested in screenings for chromosomal abnormalities and certain defects during a . The sequential screen combines ultrasound and blood tests to determine the risk of chromosomal abnormalities, including Down's Syndrome (Trisomy 21) and Trisomy 18, as well as open neural tube defects including spina bifida. Ultrasound examination is performed between 11 weeks and 13 weeks gestational age. Blood tests are drawn after the ultrasound and again later in the between 15 and 21 weeks gestational age. Please let your physician know if you are interested in this testing. It will require an appointment with our restorative care technician. This is not an ultrasound performed by a physician in our office during a routine visit. SIGNS AND SYMPTOMS OF LABOR 1. Contractions every 10 minutes or more often 2. Clear, pink, or brownish fluid (water) leaking from vagina 3. Feeling that baby is pushing down, pressure 4. Low, dull backache 5. Cramps that feel like a period 6. Cramps with or without diarrhea If you notice any of the above symptoms, contact our office at [phone] and ask to speak with a nurse. After hours, you can call doctors registry at [phone] OR call [facility] at [phone] and ask to have the doctor contract forester paged. If you consider this an emergency, dial 9--1 or go to your nearest emergency department. NEED HELP? Are you dealing with a violent or abusive relationship? Are you a victim of rape or sexual assult? Call [facility] ([place]) 24 hour Crisis Hotline: 706.924.3971 or 068-959-7538. MANUAL Your Guide to a Healthy manual is now on-line. Visit [email or web address] to download your free copy documented in this encounter [facility] 07-27-2023 Note HNO ID: [id number] Author: ALVIN DILLARD MD Service: Obstetrics Author Type: Registered Nurse Type: Procedures Filed: 07/28/2023 09:32 Note Text: Attestation signed by Alvin Dillard MD at 07/28/2023 9:32 AM OBSTETRICS MONITORING ASSESSMENT NST Interpretation: FHR Category: 1 (07/27/23 1500 : Darlyn Valdez RN) Disposition: PROVIDER INTERPRETATION: Reactive SIGNATURE: Alvin Dillard MD PATIENT NAME: Walter Holley DATE: July 28, 2023 TIME: 9:31 AM OBSTETRICS NST SUMMARY SERVICE DATE: July 28, 2023 The patient is a 33 year old female, , who is at 35w5d with an NIKKIE of 08/27/2023, by Last Menstrual Period dating method. NST OBJECTIVE FINDINGS PER NURSE: Start Time: Complete Time: Indications: Patient Reason For: NST Explanation: Acoustic Stimulator: Interventions: MONITORING/ASSESSMENT: Baseline: Variability: Accelerations: Decelerations: Contractions: Frequency: Above information forwarded to for final review and interpretation. SIGNATURE: Ciara Melendez RN PATIENT NAME: Walter Holley DATE: July 28, 2023 TIME: 9:29 AM [facility] 07-27-2023 Note HNO ID: [id number] Author: DARLYN VALDEZ RN Service: Obstetrics Author Type: Registered Nurse Type: Nursing Progress Note Filed: 07/27/2023 15:58 Note Text: LABS COMPLETED AND US HERE. PATIENT TO US ROOM. [facility] 07-17-2023 Note HNO ID: [id number] Author: MADELIN PAGE APRN.CNP Service: ? Author Type: Nurse Practitioner Type: Procedures Filed: 07/17/2023 16:59 Note Text: NST SUMMARY PROVIDER ASSESSMENT AND INTERPRETATION Indications for NST: Decreased Movement Baseline: 130 Variability: Moderate Accelerations: Present 15 X 15 Decelerations: None Interpretation: Reactive SIGNATURE: Madelin Page APRN.CERTIFIED LEGAL INVESTIGATOR, Dr. Alexis [facility] 07-17-2023 Miscellaneous Notes Addended by: IRA ALEXIS on: 07/17/2023 05:20 PM Modules accepted: Orders S: Walter is a 33 year old female who presents at 34w1d for a routine visit. Feeling movement. Denies headache, visual changes, chest pain, shortness of breath, vaginal bleeding, leakage of fluid, or dysuria. Reports back pain that is radiating to the front, occurring every 20 minutes. Rates it as a 9/10. Visibly uncomfortable today. Denies burning with urination. Has noticed some pink mucus vaginally that has been occurring since yesterday. Pain has been present for a week. Was in ER for 07/09 for right sided back pain that was treated with oral Keflex. She was admitted overnight. Finished Keflex on 07/10. O: See flow sheet Gen: No apparent distress Abd: Gravid, nontender, S=D ASSESSMENT/PLAN: 1. Supervision of other normal , antepartum - ICD9: V22.1, ICD10: Z34.80 (primary diagnosis) 2. 34 weeks gestation of - ICD9: V22.2, ICD10: Z3A.34 - URINE OB DIP B/O 3. Benign gestational thrombocytopenia in third trimester (HCC) - ICD9: 649.33, 287.5, ICD10: O99.113, D69.6 4. Elevated glucose - ICD9: 790.29, ICD10: R73.09 - 1 hour elevated - 3 hour WNL 5. Flank pain - ICD9: 789.09, ICD10: R10.9 6. Acute right-sided back pain, unspecified back location - ICD9: 724.5, ICD10: M54.9 - Was treated in ER 07/09 with Rocephin and d/c on oral Keflex - Suspect possible kidney stone - Denies fever or chills - Right sided CVA tenderness - CONSULT TO UROLOGY and plan for ultrasound. Ultrasound scheduled for tomorrow at 4:30 with [facility] - Increase hydration - Dr. Alexis consulted, physically saw patient, and offered admission to hospital. Patient declines. 3 tablets of Percocet rx by Dr. Alexis for pain. 7. Decreased movements in third trimester, single or unspecified fetus - ICD9: 655.73, ICD10: O36.8130 - NST today reactive Madelin Page APRN.CNP documented in this encounter [facility] 07-17-2023 Procedure note NST SUMMARY PROVIDER ASSESSMENT AND INTERPRETATION Indications for NST: Decreased Movement Baseline: 130 Variability: Moderate Accelerations: Present 15 X 15 Decelerations: None Interpretation: Reactive SIGNATURE: Madelin Page APRN.CNP, Dr. Alexis documented in this encounter [facility] 07-17-2023 Instructions Mary Ellen Serna RN - 07/17/2023 3:35 PM EST [facility] Renal Ultrasound appointment on 07/18 @ 4:30 PM Arrive 15 min early. 1st floor Diagnostics SEQUENTIAL SCREENINGS The [facility] offers sequential screenings for women who are interested in screenings for chromosomal abnormalities and certain defects during a . The sequential screen combines ultrasound and blood tests to determine the risk of chromosomal abnormalities, including Down's Syndrome (Trisomy 21) and Trisomy 18, as well as open neural tube defects including spina bifida. Ultrasound examination is performed between 11 weeks and 13 weeks gestational age. Blood tests are drawn after the ultrasound and again later in the between 15 and 21 weeks gestational age. Please let your physician know if you are interested in this testing. It will require an appointment with our restorative care technician. This is not an ultrasound performed by a physician in our office during a routine visit. SIGNS AND SYMPTOMS OF LABOR 1. Contractions every 10 minutes or more often 2. Clear, pink, or brownish fluid (water) leaking from vagina 3. Feeling that baby is pushing down, pressure 4. Low, dull backache 5. Cramps that feel like a period 6. Cramps with or without diarrhea If you notice any of the above symptoms, contact our office at [phone] and ask to speak with a nurse. After hours, you can call doctors registry at [phone] OR call [facility] at [phone] and ask to have the doctor contract forester paged. If you consider this an emergency, dial [phone]- or go to your nearest emergency department. NEED HELP? Are you dealing with a violent or abusive relationship? Are you a victim of rape or sexual assult? Call [facility] ([facility] 24 hour Crisis Hotline: 566.510.6927 or 201-045-7169. MANUAL Your Guide to a Healthy manual is now on-line. Visit [email or web address] to download your free copy documented in this encounter [facility] 05-08-2023 Miscellaneous Notes KJ - VB No. LOF No. CTXS Yes - rare & mild. Movement: present. Other c/o: No. Medication list reviewed. Physical Exam See Flow Sheet Gen: no accute distress, well appearing Abd: soft, nontender, gravid A/P 24w1d Estimated Date of Delivery: 08/27/23 28wk labs ordered PTL & FM precautions reviewed. Addi Burns MD documented in this encounter [facility] 05-08-2023 Instructions s Saira Schmidt - 05/08/2023 8:09 AM EST SEQUENTIAL SCREENINGS The [facility] offers sequential screenings for women who are interested in screenings for chromosomal abnormalities and certain defects during a . The sequential screen combines ultrasound and blood tests to determine the risk of chromosomal abnormalities, including Down's Syndrome (Trisomy 21) and Trisomy 18, as well as open neural tube defects including spina bifida. Ultrasound examination is performed between 11 weeks and 13 weeks gestational age. Blood tests are drawn after the ultrasound and again later in the between 15 and 21 weeks gestational age. Please let your physician know if you are interested in this testing. It will require an appointment with our restorative care technician. This is not an ultrasound performed by a physician in our office during a routine visit. SIGNS AND SYMPTOMS OF LABOR 1. Contractions every 10 minutes or more often 2. Clear, pink, or brownish fluid (water) leaking from vagina 3. Feeling that baby is pushing down, pressure 4. Low, dull backache 5. Cramps that feel like a period 6. Cramps with or without diarrhea If you notice any of the above symptoms, contact our office at [phone] and ask to speak with a nurse. After hours, you can call [facility] at [phone] OR call [facility] at [phone] and ask to have the doctor contract forester paged. If you consider this an emergency, dial 9-1-6 or go to your nearest emergency department. NEED HELP? Are you dealing with a violent or abusive relationship? Are you a victim of rape or sexual assult? Call [facility] ([place]) 24 hour Crisis Hotline: 865.220.7153 or 773-233-2229. MANUAL Your Guide to a Healthy manual is now on-line. Visit [email or web address] to download your free copy documented in this encounter [facility] 04-14-2023 Miscellaneous Notes 2nd risk assessment form submitted 04/14/23 Mimi Peralta RN documented in this encounter [facility] 03-12-2023 Miscellaneous Notes Received denial for inhaler. [place] through [employer] is $8. Pt notified and was agreeable to pay out of pocket. Suzanna Art LPN [employer] submitted for inhaler. Will await further response from pt's insurance. Suzanna Art LPN documented in this encounter [facility] 03-12-2023 Miscellaneous Notes S: Walter Holley is a 32 year old female who presents at 16 weeks gestation for a routine visit. Just started flutters. Having issues with allergies. Requesting Singulair and Albuterol inhaler. Stated she usually has to use both during . Denies headache, visual changes, chest pain, shortness of breath, vaginal bleeding, leakage of fluid, or dysuria. Feeling well, no complaints. O: See flow sheet Gen: No apparent distress Abd: Gravid, nontender ASSESSMENT/PLAN: 1. 16 weeks gestation of - ICD9: V22.2, ICD10: Z3A.16 (primary diagnosis) - URINE OB DIP B/O 2. Encounter for supervision of normal in multigravida - ICD9: V22.1, ICD10: Z34.80 3. Seasonal allergies - Rx sent for Singulair 10 mg PO Daily and Albuterol inhaler - PRN RTO- 3-4 weeks for anatomy US and ANDREW Brown APRN.CNM documented in this encounter [facility] 03-12-2023 Instructions Ingrid Solomon MA - 03/12/2023 7:59 AM EDT SEQUENTIAL SCREENINGS The [facility] offers sequential screenings for women who are interested in screenings for chromosomal abnormalities and certain defects during a . The sequential screen combines ultrasound and blood tests to determine the risk of chromosomal abnormalities, including Down's Syndrome (Trisomy 21) and Trisomy 18, as well as open neural tube defects including spina bifida. Ultrasound examination is performed between 11 weeks and 13 weeks gestational age. Blood tests are drawn after the ultrasound and again later in the between 15 and 21 weeks gestational age. Please let your physician know if you are interested in this testing. It will require an appointment with our restorative care technician. This is not an ultrasound performed by a physician in our office during a routine visit. SIGNS AND SYMPTOMS OF LABOR 1. Contractions every 10 minutes or more often 2. Clear, pink, or brownish fluid (water) leaking from vagina 3. Feeling that baby is pushing down, pressure 4. Low, dull backache 5. Cramps that feel like a period 6. Cramps with or without diarrhea If you notice any of the above symptoms, contact our office at [phone] and ask to speak with a nurse. After hours, you can call doctors registry at [phone] OR call [facility] at [phone] and ask to have the doctor contract forester paged. If you consider this an emergency, dial 9-- or go to your nearest emergency department. NEED HELP? Are you dealing with a violent or abusive relationship? Are you a victim of rape or sexual assult? Call [facility] ([place]) 24 hour Crisis Hotline: 684.516.3363 or 977-638-4041. MANUAL Your Guide to a Healthy manual is now on-line. Visit [email or web address] to download your free copy documented in this encounter [facility] 02-11-2023 Miscellaneous Notes 1st risk assessment form submitted February 11, 2023. Baylee Griffiths RN documented in this encounter [facility] 02-06-2023 Note HNO ID: [id number] Author: Asher Wharton MD Service: ? Author Type: Physician Type: Progress Notes Filed: 02/06/2023 1:40 PM Note Text: OB point of care ultrasound was performed. See imaging tab for details. Asher Soto MD [facility] 02-06-2023 History of Presen t illness Narrative OB point of care ultrasound was performed. See imaging tab for details. Asher Soto MD documented in this encounter [facility] 02-05-2023 Note HNO ID: [id number] Author: Monik García APRN.CERTIFIED LEGAL INVESTIGATOR Service: ? Author Type: Nurse Practitioner Type: Progress Notes Filed: 02/05/2023 9:34 AM Note Text: INITIAL OB ASSESSMENT HPI: Walter is a 32 year old No obstetric history on file. White here to establish Obstetrical Care. Patient's last menstrual period was 11/20/2022 (approximate). from OB Dating Form. Cycles regular was unplanned but accepted Complaints: None OB History T3 L3 SAB0 IAB0 Ectopic0 Multiple0 Live Births3 Previous history: Prior : never History of 4th degree laceration: No History of shoulder dystocia: No History of Hypertensive disorders including pre-eclampsia, chronic hypertension or gestational hypertension: No History of gestational diabetes: No Patient's Risk Screening for delivery: none Have you had a prior oswald between 20w and 36w6d?: No MEDICAL/PSYCHOSOCIAL HISTORY: History of hemorrhage or bleeding concerns: No Thyroid Disease: Yes- history thyroid cancer with right thyroidectomy with subsequent normal thyroid labs History of chronic hypertension: No History of pre-existing diabetes: No No results found for: ABORHD BMI 29.87 kg/(m2) History of abnormal pap: No Prior treatment for cervical dysplasia: none. History of STDs: None Tobacco use: Yes - 1/2 ppd Caffeine use: Yes 3 cups coffee/day Drug use: No Alcohol use: Not with Multivitamin with Folic acid: Yes Buddhist or heritage: No Would refuse blood transfusion if medically necessary: No Are you currently employed? No Do you have any history of depression, anxiety, PTSD, eating disorders or other mood problems: No Do you have any safety concerns or history of traumatic events that you would like to discuss with your provider: No How often does this describe you? I don't have enough money to pay my bills: Never Within the past 12 months, have you worried that your food would run out before you had money to buy more: Never In the past 12 months, has lack of reliable transportation kept you from going to medical appointments or work, or from keeping things needed for daily living: Never In the past 12 months, have you had any concerns about having a place to live, or about the condition or quality of your housing: Never Are there any cultural or spiritual needs we should be aware of: No Depression: denies symptoms of depression. OB Depression and Anxiety Screening- This Encounter (since 02/04/2023) Over the past 2 weeks have you felt down, depressed, or hopeless? Negative Over the past two weeks, have you felt little interest or pleasure in doing things?? 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 vit37/iron/folic acid (PRENATA ORAL) Take 1 tablet by mouth twice daily. gummy No current facility-administered medications for this visit. Allergies As of Date: 02/05/2023 Allergen Noted Reaction CODEINE 02/05/2023 Other: See Comments Fully Assessed 02/05/2023 Does patient have penicillin allergy: No REVIEW OF SYSTEMS: GENERAL: Negative for: Fever or Chills HEENT: Negative for: Headache, Impaired Vision, Ringing in Ears, Nosebleeds NECK: Negative for: Swelling, Pain, Stiffness RESPIRATORY: Negative for: Cough, Shortness of breath, Wheezing GASTROINTESTINAL: Negative for: Heartburn, Constipation, Diarrhea, Blood in stool, Vomiting MUSCULOSKELETAL: Negative for: Muscle or joint pain, stiffness, Joint swelling NEUROLOGIC/PSYCHIATRIC: Negative for: Weakness, Paralysis, Numbness, Tingling, Tremor, Anxiety, Depression, Memory loss SKIN: Negative for: Rash, Itching GENITOURINARY: Negative for: vaginal itching, vaginal discharge, hematuria or dysuria PHYSICAL EXAM: Ht 5' 4 (1.63m) Wt 174 lb (78.9kg) LMP 11/20/2022 BMI 29.85 kg/(m2). GENERAL: pleasant in no apparent distress DERMATOLOGY: Normal, non-icteric, non-hirsute, and skin colored raised fluctuant area be (more content not included)... [facility] 02-05-2023 History of Presen t illness Narrative INITIAL OB ASSESSMENT HPI: Walter is a 32 year old No obstetric history on file. White here to establish Obstetrical Care. Patient's last menstrual period was 11/20/2022 (approximate). from OB Dating Form. Cycles regular was unplanned but accepted Complaints: None OB History T3 L3 SAB0 IAB0 Ectopic0 Multiple0 Live Births3 Previous history: Prior : never History of 4th degree laceration: No History of shoulder dystocia: No History of Hypertensive disorders including pre-eclampsia, chronic hypertension or gestational hypertension: No History of gestational diabetes: No Patient's Risk Screening for delivery: none Have you had a prior oswald between 20w and 36w6d?: No MEDICAL/PSYCHOSOCIAL HISTORY: History of hemorrhage or bleeding concerns: No Thyroid Disease: Yes- history thyroid cancer with right thyroidectomy with subsequent normal thyroid labs History of chronic hypertension: No History of pre-existing diabetes: No No results found for: ABORHD BMI 29.87 kg/(m^2) History of abnormal pap: No Prior treatment for cervical dysplasia: none. History of STDs: None Tobacco use: Yes - 1/2 ppd Caffeine use: Yes 3 cups coffee/day Drug use: No Alcohol use: Not with Multivitamin with Folic acid: Yes Buddhist or heritage: No Would refuse blood transfusion if medically necessary: No Are you currently employed? No Do you have any history of depression, anxiety, PTSD, eating disorders or other mood problems: No Do you have any safety concerns or history of traumatic events that you would like to discuss with your provider: No How often does this describe you? I don't have enough money to pay my bills: Never Within the past 12 months, have you worried that your food would run out before you had money to buy more: Never In the past 12 months, has lack of reliable transportation kept you from going to medical appointments or work, or from keeping things needed for daily living: Never In the past 12 months, have you had any concerns about having a place to live, or about the condition or quality of your housing: Never Are there any cultural or spiritual needs we should be aware of: No Depression: denies symptoms of depression. OB Depression and Anxiety Screening- This Encounter (since 02/04/2023) Over the past 2 weeks have you felt down, depressed, or hopeless? Negative Over the past two weeks, have you felt little interest or pleasure in doing things? 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 vit37/iron/folic acid (PRENATA ORAL) Take 1 tablet by mouth twice daily. gummy No current facility-administered medications for this visit. Allergies As of Date: 02/05/2023 Allergen Noted Reaction CODEINE 02/05/2023 Other: See Comments Fully Assessed 02/05/2023 Does patient have penicillin allergy: No REVIEW OF SYSTEMS: GENERAL: Negative for: Fever or Chills HEENT: Negative for: Headache, Impaired Vision, Ringing in Ears, Nosebleeds NECK: Negative for: Swelling, Pain, Stiffness RESPIRATORY: Negative for: Cough, Shortness of breath, Wheezing GASTROINTESTINAL: Negative for: Heartburn, Constipation, Diarrhea, Blood in stool, Vomiting MUSCULOSKELETAL: Negative for: Muscle or joint pain, stiffness, Joint swelling NEUROLOGIC/PSYCHIATRIC: Negative for: Weakness, Paralysis, Numbness, Tingling, Tremor, Anxiety, Depression, Memory loss SKIN: Negative for: Rash, Itching GENITOURINARY: Negative for: vaginal itching, vaginal discharge, hematuria or dysuria PHYSICAL EXAM: Ht 5' 4 (1.63m) Wt 174 lb (78.9kg) LMP 11/20/2022 BMI 29.85 kg/(m^2). GENERAL: pleasant in no apparent distress DERMATOLOGY: Normal, non-icteric, non-hirsute, and skin colored raised fluctuant area behind left ear from bug bite 1 week ago - to [facility] NECK: Supple, full range of motion, no adenopathy, and thyroid normal CHEST: Normal inspiratory effort BREAST: soft, non-tender, symmetric, no dominant mass, normal nipple-areolar complex, no lymphadenopathy, and no nipple discharge ABDOMEN: soft, non-tender, and no masses NEURO: alert and oriented x3,exam grossly non-focal PELVIS: External genitalia normal without lesions. Perineal body intact. No vaginal or cervical lesions. Scant bleeding with exam. Cervix closed.No adnexal masses or tenderness. Clinical Pelvimetry: Pelvimetry clinically assessed as adequate Limited OB ultrasound exam: single intrauterine , positive cardiac activity, and crown-rump length 11 wks 1 day - per Dr Aragon. OB Risk Screening: Completed, positive findings include: Patient will be less than 17 or greater than 34 at the time of Delivery ASSESSMENT: 32 year old No obstetric history on file. at 11w0d wks gestational age PLAN: 1) Patient oriented to practice. Patient given new OB orientation folder. Discussed nutrition, folic acid supplementation, dietary guidelines, exercise, smoking, alcohol, caffeine, and drug use. Discussed gestational weight gain guidelines. Discussed routine OB labs including STD/HIV. Discussed how to access Your guide to a health and the Security Incident Response Specialist. Discussed aneuploidy and carrier screening. Regarding aneuploidy screening, nuchal translucency/first trimester early anatomy ultrasound and NIPT were discussed. Regarding carrier screening, the myriad screen was discussed. The risks/benefits and limitations of NIPT/aneuploidy screening were reviewed including the potential for false negative and false positive results. We discussed the availability of professional-society guided carrier screening and reviewed the conditions screened and limitations of screening. The availability of genetic counseling was reviewed. Information on aneuploidy/carrier screening was provided. The patient chooses: none Discussed hemoglobin electrophoresis. Patient: Declines Patient offered option of Virtual Visits. Patient unsure. May consider in future. Reviewed midwifery and rn diabetes services that are available. 2) Thyroid Disease: TSH ordered Follow up in 5 weeks (16 week gestation) or sooner prn. Monik García APRN.CNP I spent a total of 54 minutes on the date of the service which included preparing to see the patient, [id number] patient care, completing clinical documentation, obtaining and/or reviewing separately obtained history, performing a medically appropriate examination, counseling and educating the patient/family/caregiver, and ordering medications, tests, or procedures. I documented in this encounter [facility] 02-05-2023 Instructions Monik García APRN.CNP - 02/05/2023 7:51 AM EDT Please select the following link to access the [facility] Your Guide to a Healthy . [email or web address] Please select the following link to access the [facility] Your Guide to a Healthy . [email or web address] documented in this encounter [facility] 02-03-2023 Miscellaneous Notes I called patient and she was unable to get quant hcg's done due to wait time. She plans on not doing them and just coming in for NewOB appt. She states she has not had any bleeding, pain or cramping Spoke with pt and below instructions were given. Pt stated that d/t the distance away that she lives and appointments for her children and school starting she is not able to do this labwork. Pt was instructed that she can contact [facility] and have labs done there as this is part of [facility]. Pt will call and check their hours and will try to get labs done tomorrow and again in 48hrs. Leave phone note open for results. Suzanna Art LPN Agree with HCG quant Patient states this is new - has not been seen elsewhere. She had positive UPT about 2 weeks ago. States ever since IUD was removed last year she has had irregular bleeding. Bleeding in December was around 7/14, and she bled x2 days, stopped for 1 then bled 1 more day. She then had bleeding 85/ - 8/6 too. Her NOB is with [facility] on 02/05/23. Do you want to order quants for her first? Yanna Urias RN Left message to call office. Patient has new ob appointment with Ramiro García on 02/05/2023. Please verify when lmp was and if a transfer of care from another provider. If a transfer of care, will need to schedule pnob appointment and schedule with a physician/snowboarder. documented in this encounter [facility] 01-08-2023 [place] [address] ED PROGRESS NOTES Patient: WALTER HOLLEYSAIRA Diane SANTOS [id number] F Status: REG ER ED Report Date & Time: 01/08/23 221 Hx of Present Illness HPI Patient is a 32yo female who fell back on her hand and felt a pop and burning pain at the top of her hand around her middle finger with immedaite swelling of the dorsum around this finger. She did not do anything to help it. She came to ER and Xray was negative for fracture. She denies hurting anything else or smacking her head. She reports pain with using 3rd and 4th digit of this hand. Subjective Date/Time Of Evaluation Date 01/08/23 Time 2210 * Please Note: All systems reviewed and all are negative except systems noted. Review of Systems Constitutional Denies: Chills, Fever, Weakness. Cardiovascular Denies: Angina, Palpitations. Gastrointestinal Denies: Nausea, Vomiting, Abdominal Pain, Constipation. Musculoskeletal Weakness, Pain. Objective Focused Exam Performed General Appearance Alert, Oriented X3, Cooperative HEENT Atraumatic, PERRLA Lungs Clear to Auscultation, Normal Air Movement Cardiovascular NSR, Normal S1, S2, Good capillary refill Abdomen Normal Bowel Sounds, Soft Extremities Swelling of dorsum of hand at 3rd and 4th digit. Pain with flexion or extension of 3rd digit. ROM on wrist normal. Skin No Rashes, No Ulcers Neurological Cranial Nerves 2-12 NL, No sensory deficits, Age Appropriate Psych/Mental Status Normal Affect, Normal Mood, Pleasant Reviewed Reviewed Information Medications, Nurse Notes, Vitals, Allergies, Diagnostics Labs/Vitals/Meds/Orders Vital Signs Date Time Temp Pulse Resp B/P B/P Pulse O2 O2 Flow FiO2 Mean Ox Delivery Rate 01/09 2208 98.9 60 20 158/80 99 01/08 2023 98.9 60 20 158/80 99 Current Medications Sig/Albert Start time Last Medication Dose Route Stop Time Status Admin Ibuprofen 600 MG NOW STA 01/08 2219 DC 01/08 PO 01/08 Orders Procedure Date/time Status ED Ready to Discharge Home 01/08 2229 Active Radiology Impressions EXAMINATION: THREE XRAY VIEWS OF THE LEFT HAND01/08/2023 6:56 pm HAND 3 VIEWS LEFT COMPARISON: None available. HISTORY: ORDERING SYSTEM PROVIDED HISTORY: TECHNOLOGIST PROVIDED HISTORY: Reason for Exam: PAIN, INJURY FINDINGS: Mineralization and bony alignment are normal. There is no fracture or dislocation. No periosteal reaction. No significant degenerative changes are present. There is no joint effusion. The soft tissues appear normal. IMPRESSION: No acute osseous injury. Problems Problems Current Problems 1. Sprain of hand, left Recent Orders My Orders (without Meds) Procedure Date/time Status ED Ready to Discharge Home 01/08 2229 Active Plan Plans Clinical Impression Impression: 1. Left hand sprain 2. Possible flexion tendon injury Plan: 1. Motrin 600mg now 2. MADISON wrap to hand 3. Ortho reference if pain and hand movement doesn't improve in 3-5 days Disposition Home <Electronically signed by SAIRA MONROY PA-C> 01/08/232236 SAIRA MONROY PA-C << Signature on File>> Reported By: SAIRA MONROY PA-C Signed By: SAIRA MONROY PA-C Tests performed at: [address] [id number] documented in this encounter [facility] Diagnosis with uncertain viability, single or unspecified fetus- Primary Encounter for supervision of normal in multigravida Encounter for screening for malignant neoplasm of cervix Screening for malignant neoplasm of the cervix History of partial thyroidectomy Other postprocedural status Special screening examination for human papillomavirus (HPV) [facility] Diagnosis with uncertain viability, single or unspecified fetus- Primary [facility] Diagnosis 16 weeks gestation of - Primary state, incidental Encounter for supervision of normal in multigravida Seasonal allergies Allergic rhinitis, cause unspecified [facility] Diagnosis Supervision of other normal , antepartum- Primary 24 weeks gestation of state, incidental [facility] Diagnosis Supervision of other normal , antepartum- Primary 34 weeks gestation of state, incidental Benign gestational thrombocytopenia in third trimester (HCC) Elevated glucose Other abnormal glucose Flank pain Abdominal pain, unspecified site Acute right-sided back pain, unspecified back location Decreased movements in third trimester, single or unspecified fetus [facility] Diagnosis Benign gestational thrombocytopenia in third trimester (HCC)- Primary Supervision of high risk in third trimester Unspecified high-risk 37 weeks gestation of state, incidental [facility] Diagnostic Procedure Only (Routine) - Pending Review Specialty Diagnoses / Procedures Referred By Lucila moncada Referred To Contact [facility] Diagnoses 16 weeks gestation of Encounter for supervision of normal in multigravida Procedures OBSTETRIC ULTRASOUND WHI US PREG UTERUS AFTER 1ST TRIMEST GESTATION Mary Brown APRN.CNM [address] [place] [address] [address] Referral ID Status Reason Start Date Expiration Date Visits Requested Visits Authorized [id number] Pending Review Auto-Generat ed Referral 03/12/2023 03/11/2024 1 1 [facility] Summary Purpose Family History No Family History Records FoundNo Family History Records FoundNo Family History Records FoundNo Family History Records FoundNo Family History Records Found Advance Directives No Advanced Directives Records FoundNo Advanced Directives Records FoundNo Advanced Directives Records FoundNo Advanced Directives Records FoundNo Advanced Directives Records Found Health Concerns Problem Noted Date Diagnosed Date [facility] Education - COMMON 02/05/2023 Problem Noted Date Diagnosed Date [facility] Education - COMMON 02/05/2023 Problem Noted Date Diagnosed Date [facility] Education - COMMON 02/05/2023 Problem Noted Date Diagnosed Date [facility] Education - COMMON 02/05/2023 Problem Noted Date Diagnosed Date [facility] CC Education - COMMON 02/05/2023 Problem Noted Date Diagnosed Date [facility] CC Education - COMMON 02/05/2023 Problem Noted Date Diagnosed Date [facility] CC Education - COMMON 02/05/2023 Problem Noted Date Diagnosed Date [facility] CC Education - COMMON 02/05/2023 Problem Noted Date Diagnosed Date [facility] CC Education - COMMON 02/05/2023 Reason for Referral Specialty Diagnoses / Procedures Referred By Lucila moncada Referred To Contact Urology Diagnoses 34 weeks gestation of Flank pain Acute right-sided back pain, unspecified back location Procedures CONSULT TO UROLOGY OFFICE/OUTPATIENT [facility] 60 MINUTES Ira Alexis MD [address] [place] [address] Referral ID Status Reason Start Date Expiration Date Visits Requested Visits Authorized [id number] Authorized PCP Requested Referral 07/17/2023 07/16/2024 1 1 Additional Source Comments INFORMATION SOURCE (unrecogn ized section and content) DATE CREATED AUTHOR AUTHOR'S ORGANIZ ATION 07/16/2020 [facility] DATE CREATED AUTHOR AUTHOR'S ORGANIZ ATION 01/03/2023 [facility] DATE CREATED AUTHOR AUTHOR'S ORGANIZ ATION 08/11/2023 [facility] DATE CREATED AUTHOR AUTHOR'S ORGANIZ ATION 08/14/2023 [facility] Source Comments (unrecognize d section and content) In the event this informatio n is protected by the Federal Confidentiality of Alcohol and Drug Abuse Patient Records regulations: The Federal rules restrict any use of the information to criminally investigate or prosecute any alcohol or drug abuse patient.[facility] the event this information is protected by the Federal Confidentiality of Alcohol and Drug Abuse Patient Records regulations: The Federal rules restrict any use of the information to criminally investigate or prosecute any alcohol or drug abuse patient.[facility] the event this information is protected by the Federal Confidentiality of Alcohol and Drug Abuse Patient Records regulations: The Federal rules restrict any use of the information to criminally investigate or prosecute any alcohol or drug abuse patient.[facility] the event this information is protected by the Federal Confidentiality of Alcohol and Drug Abuse Patient Records regulations: The Federal rules restrict any use of the information to criminally investigate or prosecute any alcohol or drug abuse patient.[facility] the event this information is protected by the Federal Confidentiality of Alcohol and Drug Abuse Patient Records regulations: The Federal rules restrict any use of the information to criminally investigate or prosecute any alcohol or drug abuse patient.[facility] the event this information is protected by the Federal Confidentiality of Alcohol and Drug Abuse Patient Records regulations: The Federal rules restrict any use of the information to criminally investigate or prosecute any alcohol or drug abuse patient.[facility] the event this information is protected by the Federal Confidentiality of Alcohol and Drug Abuse Patient Records regulations: The Federal rules restrict any use of the information to criminally investigate or prosecute any alcohol or drug abuse patient.[facility] the event this information is protected by the Federal Confidentiality of Alcohol and Drug Abuse Patient Records regulations: The Federal rules restrict any use of the information to criminally investigate or prosecute any alcohol or drug abuse patient.[facility] the event this information is protected by the Federal Confidentiality of Alcohol and Drug Abuse Patient Records regulations: The Federal rules restrict any use of the information to criminally investigate or prosecute any alcohol or drug abuse patient.[facility] the event this information is protected by the Federal Confidentiality of Alcohol and Drug Abuse Patient Records regulations: The Federal rules restrict any use of the information to criminally investigate or prosecute any alcohol or drug abuse patient.[facility] the event this information is protected by the Federal Confidentiality of Alcohol and Drug Abuse Patient Records regulations: The Federal rules restrict any use of the information to criminally investigate or prosecute any alcohol or drug abuse patient.[facility] Center[facility] the event this information is protected by the Federal Confidentiality of Alcohol and Drug Abuse Patient Records regulations: The Federal rules restrict any use of the information to criminally investigate or prosecute any alcohol or drug abuse patient.[facility] Center[facility] the event this information is protected by the Federal Confidentiality of Alcohol and Drug Abuse Patient Records regulations: The Federal rules restrict any use of the information to criminally investigate or prosecute any alcohol or drug abuse patient.[facility] Reason for Visit (unrecogniz ed section and content) Reason Comments Initial OB Visit Specialty Diagnoses / Procedures Referred By Lucila moncada Referred To Contact [facility] Diagnoses OB Procedures OB Self Monik García APRN.CERTIFIED LEGAL INVESTIGATOR [address] [place] [address] Referral ID Status Reason Start Date Expiration Date V isits Requested Visits Authorized [id number] Closed Patient Cleared - INN Insurance Found Financial Clearance Not Required 02/03/2023 05/04/2023 1 1 Reason Comments [facility] - Other Reason Onset Date Comments Care 03/12/2023 Reason Comments Insurance Authorization Reason Comments PRAF Reason Onset Date Comments Care 05/08/2023 Reason Onset Date Comments Care 07/17/2023 Reason Onset Date Comments Care 08/07/2023 Reason Onset Date Comments Population Health Navigation Outreach 08/13/2023 OB/peds FOR RECORDS PERTAINING TO PATIENTS WHO ARE OR HAVE BEEN ENROLLED IN A CHEMICAL DEPENDENCY/SUBSTANCEABUSE PROGRAM, SOME INFORMATION MAY BE OMITTED. This clinical summary was aggregated from multiple sources. Caution should be exercised in using it in the provision of clinical care. This summary normalizes information from multiple sources, and as a consequence, information in this document may materially change the coding, format and clinical context of patient data. In addition, data may be omitted in some cases. CLINICAL DECISIONS SHOULD BE BASED ON THE PRIMARY CLINICAL RECORDS. [facility] [employer] [facility]. provides no warranty or guarantee of the accuracy or completeness of information in this document.
--- NOTE | 2023-08-18 21:37 | OB.TRI.NOTE ---
HPI - General General Date of Service: 08/14/23 Chief Complaint: Contractions, HTN HPI Narrative WALTER BENITEZ, is a 33 F who presents from the office with contraction pain and HTN. Was 3cm in office and ballotable Systolic 140 Maternal Data Information Final NIKKIE: 08/27/23 Gestational age: 38+1 PFSH PFSH Medical History Asthma affecting in third trimester Home Medications Albuterol Inhaler 1 - 2 puff inhalation Q4H PRN PRN Allergies 02/11/18 [History Last Taken 03/05/18 08:00] montelukast 10 mg tablet 1 tab PO DAILY allergies 02/11/18 [History Last Taken 03/08/18 09:00] vits,calcium no.78-iron fumarate-folic acid 29 mg-1 mg tablet (Prenatabs FA) 1 tab PO DAILY 02/19/18 [History Last Taken 08/14/23] Allergy/AdvReac Type Severity Reaction Status Date / Time adhesive tape Allergy Itching Verified 08/15/23 11:51 codeine Allergy Itching Verified 08/15/23 11:51 [email or web address] Allergy Itching Verified 08/15/23 11:51 Social History Smoking Status: Current every day smoker History 3 Elective abortions Hx Para 2 Spontaneous abortions Hx # Term Pregnancies Ectopic pregnancies Hx # Pregnancies Multiple births # of living children NST FHR Rate Baby A Baseline: 140s Variability:: Moderate Accelerations:: 15 x 15 NST Reactive:: Yes FHR Category:: Category I Uterine Activity:: Irregular Assessment & Plan (1) 38 weeks gestation of : (2) False labor after 37 completed weeks of gestation: PLAN: Call office to schedule elective induction after 39 weeks (3) Transient hypertension of : QUALIFIERS: Trimester: third trimester Qualified Code(s): O13.3 - Gestational [-induced] hypertension without significant proteinuria, third trimester PLAN: PIH labs normal, neg protein
== END 2023-08-14 18:40 | disposition home or self-care (01) ==
LOC: WPOUT 16:53 → WP 16:54
PROVIDERS: Referring Provider Obstetrics & Gynecology; Visit Provider Obstetrics & Gynecology
DX: O47.1 False labor at or after 37 completed weeks of gestation (principal); Z3A.38 38 weeks gestation of pregnancy; O13.3 Gestational [pregnancy-induced] hypertension without significant proteinuria, third trimester
CPT/HCPCS: 36415; 59025; 59050; 82565; 82570; 84156; 84450; 84460; 84550; 85027; 99221; G0378

== ENCOUNTER 2023-08-15 11:10 | Outpatient (CLI) | payer MEDICAID, SELFPAY ==
[2023-08-15 11:32] VITALS: BP 136/77; PULSE 66
[2023-08-15 11:44] VITALS: BP 136/77; PULSE 66; PULSE 82; PULSE 86; RESP 18; TEMP 36.8; O2SAT 83; O2SAT 96; O2SAT 97
[2023-08-15 11:48] VITALS: BMI 33.3
[2023-08-15 12:25] LABS: ROM Internal Control Test YES-OK TO RESULT pt. (Internal QC); ROM Patient Test Negative (Negative); Record Kit Lot#, ROM+ K1374
--- NOTE | 2023-08-15 13:19 | OB.TRI.NOTE ---
HPI - General General Date of Service: 08/15/23 HPI Narrative WALTER BENITEZ, is a 33 F who presents with ctxs. Maternal Data Information Final NIKKIE: 08/27/[birth year] Gestational age: 38&2 PFSH PFSH Medical History (Updated 03/09/18 @ 13:[address] Fidel Gomez MD) Asthma affecting in third trimester Home Medications Albuterol Inhaler 1 - 2 puff inhalation Q4H PRN PRN Allergies 02/11/18 [History Last Taken 03/05/18 08:00] montelukast 10 mg tablet 1 tab PO DAILY allergies 02/11/18 [History Last Taken 03/08/18 09:00] vits,calcium no.78-iron fumarate-folic acid 29 mg-1 mg tablet (Prenatabs FA) 1 tab PO DAILY 02/19/18 [History Last Taken 08/14/23] Allergy/AdvReac Type Severity Reaction Status Date / Time adhesive tape Allergy Itching Verified 08/15/23 11:51 codeine Allergy Itching Verified 08/15/23 11:51 [email or web address] Allergy Itching Verified 08/15/23 11:51 Social History Smoking Status: Current every day smoker History Elective abortions Hx Para 2 Spontaneous abortions Hx # Term Pregnancies Ectopic pregnancies Hx # Pregnancies Multiple births # of living children NST FHR Rate Baby A Baseline: 125 Variability:: Moderate Accelerations:: 15 x 15 Decelerations:: None NST Reactive:: Yes Uterine Activity:: Irregular Assessment & Plan (1) 38 weeks gestation of : (2) False labor after 37 completed weeks of gestation: PLAN: Plan Reactive NST
== END 2023-08-15 13:35 | disposition home or self-care (01) ==
LOC: WPOUT 11:16 → WP 11:17
PROVIDERS: Referring Provider Obstetrics & Gynecology; Visit Provider Obstetrics & Gynecology
DX: O47.1 False labor at or after 37 completed weeks of gestation (principal); Z3A.38 38 weeks gestation of pregnancy
CPT/HCPCS: 59025; 59050; 84112; 99221; G0378

== ENCOUNTER 2023-08-19 23:40 | Inpatient (IN) | payer MEDICAID, SELFPAY ==
[2023-08-19 23:53] VITALS: BMI 34.0
[2023-08-20] VITALS (74 sets, daily range): BP systolic 115–158; BP diastolic 58–102; PULSE 48–121; RESP 16–18; TEMP 36–37.2; O2SAT 90–99
[2023-08-20] MEDS: Lactated Ringers 1,000 ML 200 ML IV (00:20)
[2023-08-20 00:32] LABS: Absolute Lymphocyte Count 2.22 X10^3/uL (0.83-4.51); Absolute Neutrophil Count 11.2 X10^3/uL (2.0-7.7); Basophil# 0.04 X10^3/uL; Basophil% 0.3 % (0-1); Eosinophils% 0.7 % (0-5); Hemoglobin 11.6 g/dL (12.0-15.0); Lymphocyte # 2.22 X10^3/ul (0.83-4.51); Lymphocyte % 15.5 % (19-41); Mean Corp Hgb Conc 33.1 g/dL (32-36); Mean Corpuscular Hgb 29.6 pg (27.0-32.0); Mean Corpuscular Volume 89.3 fL (81-99); Mean Platelet Vol. 12.9 fl (6.2-12.0); Monocyte# 0.63 X10^3/uL; Monocyte% 4.4 % (0-10); NRBC Flagged by Analyzer 0 % (0-5); Neutrophil # 11.15 X10^3/uL (2.7-7.7); Neutrophil % 77.9 % (47-70); Platelet Count 140 K/mm3 (150-450); RBC Distribution Width CV 13.6 % (11.6-14.6); RBC Distribution Width SD 44.5 fl (35.1-43.9); Red Blood Count 3.92 M/mm3 (4.2-5.4); White Blood Count 14.3 K/mm3 (4.4-11.0)
[2023-08-20 01:12] LABS: ROM Internal Control Test YES-OK TO RESULT pt. (Internal QC)
[2023-08-20 01:13] LABS: ROM Patient Test POSITIVE (Negative); Record Kit Lot#, ROM+ K1374
[2023-08-20 01:16] LABS: Syphilis Antibodies Non-reactive
[2023-08-20] MEDS: Ondansetron 4 MG/2 ML Vial IV (01:26)
[2023-08-20] MEDS: fentaNYL-bupivacaine (epidural) 100 ML BAG EPIDURAL (01:46)
[2023-08-20] MEDS: Oxytocin 10 UNITS/ML Vial IM (04:55)
[2023-08-20] MEDS: Oxytocin 15 Units/NS 250ml 15 UNITS/250 ML IV.SOLN 83 UNITS IV (04:56)
[2023-08-20] MEDS: Methylergonovine 0.2 MG/ML Ampul IM (05:06)
[2023-08-20] MEDS: miSOPROStol 200 MCG Tablet 1000 MCG RC (05:14)
--- NOTE | 2023-08-20 05:59 | NURSING ---
0511: Call placed to provider to update that pt still has a boggy uterus after IM pitocin and IM Methergine. 1000mcg rectal cytotec given to pt. After fundal massage large blood clot was expelled from pt.
--- NOTE | 2023-08-20 06:04 | NURSING ---
0518: Call returned from provider to check on pt's bleeding. Pt's bleeding stable.
[2023-08-20 07:01] LABS: Hematocrit 32.8 % (37-47); Hemoglobin 10.8 g/dL (12.0-15.0); Mean Corp Hgb Conc 32.9 g/dL (32-36); Mean Corpuscular Hgb 29.8 pg (27.0-32.0); Mean Corpuscular Volume 90.6 fL (81-99); Mean Platelet Vol. 13.3 fl (6.2-12.0); Platelet Count 124 K/mm3 (150-450); RBC Distribution Width CV 13.5 % (11.6-14.6); RBC Distribution Width SD 44.5 fl (35.1-43.9); Red Blood Count 3.62 M/mm3 (4.2-5.4); White Blood Count 14.9 K/mm3 (4.4-11.0)
[2023-08-20] MEDS: 0.9% Saline Lock 10 ML Syringe IV ×2 (08:07→19:32)
[2023-08-20] MEDS: Acetaminophen 500 MG Tablet 1000 MG PO ×2 (09:40→19:31)
[2023-08-20] MEDS: Ibuprofen 600 MG Tablet PO (11:10)
[2023-08-20 12:27] LABS: Hematocrit 27.6 % (37-47); Hemoglobin 9.2 g/dL (12.0-15.0); Mean Corp Hgb Conc 33.3 g/dL (32-36); Mean Corpuscular Hgb 29.7 pg (27.0-32.0); Platelet Count 100 K/mm3 (150-450); RBC Distribution Width CV 13.4 % (11.6-14.6); RBC Distribution Width SD 43.8 fl (35.1-43.9); White Blood Count 13.5 K/mm3 (4.4-11.0)
--- NOTE | 2023-08-20 13:22 | PCM.HP.OB ---
HPI - General General Date of Admission: 08/19/23 HPI Narrative WALTER BENITEZ, is a 33 F who presents at 39 weeks with NIKKIE: 08/27/23 in active labor. Maternal Data Information NIKKIE Calculator Estimated Delivery Date Method Current WG Current Estimate 08/27/23 Manual 39w 0d PFSH PFSH Medical History (Updated 08/20/23 @ 13:26 by Irene Gardner CNM) Asthma affecting in third trimester Thyroid disorder Home Medications Albuterol Inhaler 1 - 2 puff inhalation Q4H PRN PRN Allergies 02/11/18 [History Last Taken 03/05/18 08:00] montelukast 10 mg tablet 1 tab PO DAILY allergies 02/11/18 [History Last Taken 03/08/18 09:00] vits,calcium no.78-iron fumarate-folic acid 29 mg-1 mg tablet (Prenatabs FA) 1 tab PO DAILY 02/19/18 [History Last Taken 08/14/23] Allergy/AdvReac Type Severity Reaction Status Date / Time adhesive tape Allergy Itching Verified 08/19/23 23:54 [email or web address] Allergy Itching Verified 08/19/23 23:54 [email or web address] Allergy Itching Verified 08/19/23 23:54 Surgical History (Updated 08/20/23 @ 00:03 by Lisa Kearns) History of surgery Social History Smoking Status: Current every day smoker History 3 Elective abortions Hx Para 3 Spontaneous abortions Hx # Term Pregnancies Ectopic pregnancies Hx # Pregnancies Multiple births # of living children ROS Constitutional Constitutional: Reports systems reviewed and no addt'l complaints, except as documented; Denies headache(s) Eyes Eyes: Denies acute decrease in peripheral vision, blurry vision or change in vision ENT HEENT: Reports systems reviewed and no addt'l complaints, except as documented Cardiovascular Cardiovascular: Denies chest pain or dizziness Respiratory/Chest Respiratory/Chest: Denies cough, dyspnea, dyspnea on exertion, shortness of breath at rest or shortness of breath with exertion Gastrointestinal Gastrointestinal: Denies abdominal pain, diarrhea, nausea or vomiting Musculoskeletal Musculoskeletal: Denies limited range of motion Integumentary Integumentary: Reports systems reviewed and no addt'l complaints, except as documented Neurologic Neurologic: Reports systems reviewed and no addt'l complaints, except as documented Psychiatric Psychiatric: Reports systems reviewed and no addt'l complaints, except as documented Endocrine Endocrinology: Reports systems reviewed and no addt'l complaints, except as documented Hematologic/Lymphatic Hematologic/Lymphatic: Reports systems reviewed and no addt'l complaints, except as documented Allergic/Immunologic Allergic/Immunologic: Reports systems reviewed and no addt'l complaints, except as documented Vital Signs Vital Signs Vital Signs: 08/20/23 00:13 08/20/23 00:13 08/20/23 00:14 Temperature Temperature Source Temporal Pulse Rate 56 L Respiratory Rate Blood Pressure 135/83 H Blood Pressure [BP] Blood Pressure Mean [BP] BP Systolic 135 BP Diastolic 83 Blood Pressure Source [BP] Blood Pressure Position [BP] Blood Pressure Location [BP] Pulse Ox Oxygen Delivery Method 08/20/23 00:15 08/20/23 00:14 08/20/23 00:15 Temperature Temperature Source Pulse Rate 56 L Respiratory Rate 16 Blood Pressure Blood Pressure [BP] Blood Pressure Mean [BP] BP Systolic BP Diastolic Blood Pressure Source [BP] Blood Pressure Position [BP] Blood Pressure Location [BP] Pulse Ox 96 Oxygen Delivery Method 08/20/23 00:14 08/20/23 01:17 08/20/23 01:18 Temperature 97.7 F L Temperature Source Temporal Pulse Rate 48 L Respiratory Rate Blood Pressure Blood Pressure [BP] Blood Pressure Mean [BP] BP Systolic BP Diastolic Blood Pressure Source [BP] Blood Pressure Position [BP] Blood Pressure Location [BP] Pulse Ox Oxygen Delivery Method 08/20/23 01:17 08/20/23 01:18 08/20/23 01:17 Temperature Temperature Source Pulse Rate Respiratory Rate 16 Blood Pressure Blood Pressure [BP] Blood Pressure Mean [BP] BP Systolic BP Diastolic Blood Pressure Source [BP] Blood Pressure Position [BP] Blood Pressure Location [BP] Pulse Ox 98 98 Oxygen Delivery Method 08/20/23 01:17 08/20/23 01:18 08/20/23 01:22 Temperature 97.8 F Temperature Source Pulse Rate 62 Respiratory Rate Blood Pressure 140/71 H Blood Pressure [BP] Blood Pressure Mean [BP] BP Systolic 140 BP Diastolic 71 Blood Pressure Source [BP] Blood Pressure Position [BP] Blood Pressure Location [BP] Pulse Ox Oxygen Delivery Method 08/20/23 01:22 08/20/23 01:30 08/20/23 01:30 Temperature Temperature Source Pulse Rate 52 L 63 Respiratory Rate Blood Pressure 158/79 H Blood Pressure [BP] Blood Pressure Mean [BP] BP Systolic 158 BP Diastolic 79 Blood Pressure Source [BP] Blood Pressure Position [BP] Blood Pressure Location [BP] Pulse Ox Oxygen Delivery Method 08/20/23 01:32 08/20/23 01:32 08/20/23 01:36 Temperature Temperature Source Pulse Rate 59 L Respiratory Rate Blood Pressure 143/102 H Blood Pressure [BP] Blood Pressure Mean [BP] BP Systolic 143 BP Diastolic 102 Blood Pressure Source [BP] Blood Pressure Position [BP] Blood Pressure Location [BP] Pulse Ox 97 Oxygen Delivery Method 08/20/23 01:36 08/20/23 01:36 08/20/23 01:37 Temperature Temperature Source Pulse Rate 67 66 Respiratory Rate Blood Pressure Blood Pressure [BP] Blood Pressure Mean [BP] BP Systolic BP Diastolic Blood Pressure Source [BP] Blood Pressure Position [BP] Blood Pressure Location [BP] Pulse Ox 93 Oxygen Delivery Method 08/20/23 01:37 08/20/23 01:41 08/20/23 01:41 Temperature Temperature Source Pulse Rate 52 L Respiratory Rate Blood Pressure Blood Pressure [BP] Blood Pressure Mean [BP] BP Systolic BP Diastolic Blood Pressure Source [BP] Blood Pressure Position [BP] Blood Pressure Location [BP] Pulse Ox 97 93 Oxygen Delivery Method 08/20/23 01:42 08/20/23 01:42 08/20/23 01:51 Temperature Temperature Source Pulse Rate 52 L Respiratory Rate Blood Pressure 140/93 H Blood Pressure [BP] Blood Pressure Mean [BP] BP Systolic 140 BP Diastolic 93 Blood Pressure Source [BP] Blood Pressure Position [BP] Blood Pressure Location [BP] Pulse Ox 94 Oxygen Delivery Method 08/20/23 01:51 08/20/23 01:55 08/20/23 01:55 Temperature Temperature Source Pulse Rate 51 L 54 L Respiratory Rate Blood Pressure 137/78 H Blood Pressure [BP] Blood Pressure Mean [BP] BP Systolic 137 BP Diastolic 78 Blood Pressure Source [BP] Blood Pressure Position [BP] Blood Pressure Location [BP] Pulse Ox Oxygen Delivery Method 08/20/23 01:55 08/20/23 01:50 08/20/23 02:00 Temperature Temperature Source Pulse Rate Respiratory Rate 16 16 Blood Pressure 138/93 H Blood Pressure [BP] Blood Pressure Mean [BP] BP Systolic 138 BP Diastolic 93 Blood Pressure Source [BP] Blood Pressure Position [BP] Blood Pressure Location [BP] Pulse Ox Oxygen Delivery Method 08/20/23 02:00 08/20/23 02:00 08/20/23 02:00 Temperature Temperature Source Temporal Pulse Rate 53 L Respiratory Rate 16 Blood Pressure Blood Pressure [BP] Blood Pressure Mean [BP] BP Systolic BP Diastolic Blood Pressure Source [BP] Blood Pressure Position [BP] Blood Pressure Location [BP] Pulse Ox Oxygen Delivery Method 08/20/23 02:00 08/20/23 02:05 08/20/23 02:05 Temperature 97.6 F L Temperature Source Pulse Rate 57 L Respiratory Rate Blood Pressure 136/87 H Blood Pressure [BP] Blood Pressure Mean [BP] BP Systolic 136 BP Diastolic 87 Blood Pressure Source [BP] Blood Pressure Position [BP] Blood Pressure Location [BP] Pulse Ox Oxygen Delivery Method 08/20/23 02:06 08/20/23 02:05 08/20/23 02:06 Temperature Temperature Source Pulse Rate 52 L Respiratory Rate 16 Blood Pressure Blood Pressure [BP] Blood Pressure Mean [BP] BP Systolic BP Diastolic Blood Pressure Source [BP] Blood Pressure Position [BP] Blood Pressure Location [BP] Pulse Ox 98 Oxygen Delivery Method 08/20/23 02:05 08/20/23 02:10 08/20/23 02:10 Temperature Temperature Source Pulse Rate 53 L Respiratory Rate Blood Pressure 137/75 H Blood Pressure [BP] Blood Pressure Mean [BP] BP Systolic 137 BP Diastolic 75 Blood Pressure Source [BP] Blood Pressure Position [BP] Blood Pressure Location [BP] Pulse Ox 97 Oxygen Delivery Method 08/20/23 02:10 08/20/23 02:11 08/20/23 02:11 Temperature Temperature Source Pulse Rate 53 L Respiratory Rate 16 Blood Pressure Blood Pressure [BP] Blood Pressure Mean [BP] BP Systolic BP Diastolic Blood Pressure Source [BP] Blood Pressure Position [BP] Blood Pressure Location [BP] Pulse Ox 97 Oxygen Delivery Method 08/20/23 02:16 08/20/23 02:16 08/20/23 02:15 Temperature Temperature Source Pulse Rate 53 L Respiratory Rate 16 Blood Pressure 136/84 H Blood Pressure [BP] Blood Pressure Mean [BP] BP Systolic 136 BP Diastolic 84 Blood Pressure Source [BP] Blood Pressure Position [BP] Blood Pressure Location [BP] Pulse Ox Oxygen Delivery Method 08/20/23 02:16 08/20/23 02:16 08/20/23 02:20 Temperature Temperature Source Pulse Rate 56 L Respiratory Rate Blood Pressure 138/82 H Blood Pressure [BP] Blood Pressure Mean [BP] BP Systolic 138 BP Diastolic 82 Blood Pressure Source [BP] Blood Pressure Position [BP] Blood Pressure Location [BP] Pulse Ox 95 Oxygen Delivery Method 08/20/23 02:20 08/20/23 02:20 08/20/23 02:50 Temperature Temperature Source Pulse Rate 57 L Respiratory Rate 16 Blood Pressure 115/68 Blood Pressure [BP] Blood Pressure Mean [BP] BP Systolic 115 BP Diastolic 68 Blood Pressure Source [BP] Blood Pressure Position [BP] Blood Pressure Location [BP] Pulse Ox Oxygen Delivery Method 08/20/23 02:51 08/20/23 02:50 08/20/23 02:51 Temperature Temperature Source Pulse Rate 60 59 L Respiratory Rate Blood Pressure Blood Pressure [BP] Blood Pressure Mean [BP] BP Systolic BP Diastolic Blood Pressure Source [BP] Blood Pressure Position [BP] Blood Pressure Location [BP] Pulse Ox 94 Oxygen Delivery Method 08/20/23 02:50 08/20/23 02:50 08/20/23 02:50 Temperature 97.9 F Temperature Source Temporal Pulse Rate Respiratory Rate 16 Blood Pressure Blood Pressure [BP] Blood Pressure Mean [BP] BP Systolic BP Diastolic Blood Pressure Source [BP] Blood Pressure Position [BP] Blood Pressure Location [BP] Pulse Ox Oxygen Delivery Method 08/20/23 04:17 08/20/23 04:17 08/20/23 04:17 Temperature 97.2 F L Temperature Source Temporal Pulse Rate Respiratory Rate 16 Blood Pressure Blood Pressure [BP] Blood Pressure Mean [BP] BP Systolic BP Diastolic Blood Pressure Source [BP] Blood Pressure Position [BP] Blood Pressure Location [BP] Pulse Ox Oxygen Delivery Method 08/20/23 04:18 08/20/23 04:18 08/20/23 05:05 Temperature Temperature Source Pulse Rate 58 L Respiratory Rate Blood Pressure 128/83 H 116/71 Blood Pressure [BP] Blood Pressure Mean [BP] BP Systolic 128 116 BP Diastolic 83 71 Blood Pressure Source [BP] Blood Pressure Position [BP] Blood Pressure Location [BP] Pulse Ox Oxygen Delivery Method 08/20/23 05:05 08/20/23 05:17 08/20/23 05:17 Temperature Temperature Source Pulse Rate 68 73 Respiratory Rate Blood Pressure 127/58 H Blood Pressure [BP] Blood Pressure Mean [BP] BP Systolic 127 BP Diastolic 58 Blood Pressure Source [BP] Blood Pressure Position [BP] Blood Pressure Location [BP] Pulse Ox Oxygen Delivery Method 08/20/23 05:17 08/20/23 05:19 08/20/23 05:19 Temperature Temperature Source Pulse Rate 88 Respiratory Rate Blood Pressure Blood Pressure [BP] Blood Pressure Mean [BP] BP Systolic BP Diastolic Blood Pressure Source [BP] Blood Pressure Position [BP] Blood Pressure Location [BP] Pulse Ox 95 91 Oxygen Delivery Method 08/20/23 05:22 08/20/23 05:22 08/20/23 05:27 Temperature Temperature Source Pulse Rate 79 121 H Respiratory Rate Blood Pressure Blood Pressure [BP] Blood Pressure Mean [BP] BP Systolic BP Diastolic Blood Pressure Source [BP] Blood Pressure Position [BP] Blood Pressure Location [BP] Pulse Ox 97 Oxygen Delivery Method 08/20/23 05:27 08/20/23 05:31 08/20/23 05:31 Temperature Temperature Source Pulse Rate 85 Respiratory Rate Blood Pressure 153/94 H Blood Pressure [BP] Blood Pressure Mean [BP] BP Systolic 153 BP Diastolic 94 Blood Pressure Source [BP] Blood Pressure Position [BP] Blood Pressure Location [BP] Pulse Ox 90 Oxygen Delivery Method 08/20/23 05:32 08/20/23 05:32 08/20/23 05:30 Temperature Temperature Source Temporal Pulse Rate 93 Respiratory Rate Blood Pressure Blood Pressure [BP] Blood Pressure Mean [BP] BP Systolic BP Diastolic Blood Pressure Source [BP] Blood Pressure Position [BP] Blood Pressure Location [BP] Pulse Ox 97 Oxygen Delivery Method 08/20/23 05:34 08/20/23 05:30 08/20/23 05:34 Temperature Temperature Source Pulse Rate 72 Respiratory Rate 16 Blood Pressure Blood Pressure [BP] Blood Pressure Mean [BP] BP Systolic BP Diastolic Blood Pressure Source [BP] Blood Pressure Position [BP] Blood Pressure Location [BP] Pulse Ox 91 Oxygen Delivery Method 08/20/23 05:30 08/20/23 05:37 08/20/23 05:37 Temperature 96.8 F L Temperature Source Pulse Rate 72 Respiratory Rate Blood Pressure Blood Pressure [BP] Blood Pressure Mean [BP] BP Systolic BP Diastolic Blood Pressure Source [BP] Blood Pressure Position [BP] Blood Pressure Location [BP] Pulse Ox 93 Oxygen Delivery Method 08/20/23 05:39 08/20/23 05:39 08/20/23 05:42 Temperature Temperature Source Pulse Rate 69 64 Respiratory Rate Blood Pressure Blood Pressure [BP] Blood Pressure Mean [BP] BP Systolic BP Diastolic Blood Pressure Source [BP] Blood Pressure Position [BP] Blood Pressure Location [BP] Pulse Ox 92 Oxygen Delivery Method 08/20/23 05:42 08/20/23 05:45 08/20/23 05:45 Temperature Temperature Source Pulse Rate 63 Respiratory Rate Blood Pressure 129/66 H Blood Pressure [BP] Blood Pressure Mean [BP] BP Systolic 129 BP Diastolic 66 Blood Pressure Source [BP] Blood Pressure Position [BP] Blood Pressure Location [BP] Pulse Ox 97 Oxygen Delivery Method 08/20/23 05:47 08/20/23 05:47 08/20/23 05:52 Temperature Temperature Source Pulse Rate 69 65 Respiratory Rate Blood Pressure Blood Pressure [BP] Blood Pressure Mean [BP] BP Systolic BP Diastolic Blood Pressure Source [BP] Blood Pressure Position [BP] Blood Pressure Location [BP] Pulse Ox 96 Oxygen Delivery Method 08/20/23 05:52 08/20/23 05:45 08/20/23 05:57 Temperature Temperature Source Pulse Rate 78 Respiratory Rate 16 Blood Pressure Blood Pressure [BP] Blood Pressure Mean [BP] BP Systolic BP Diastolic Blood Pressure Source [BP] Blood Pressure Position [BP] Blood Pressure Location [BP] Pulse Ox 94 Oxygen Delivery Method 08/20/23 05:57 08/20/23 06:01 08/20/23 06:01 Temperature Temperature Source Pulse Rate 64 Respiratory Rate Blood Pressure 134/62 H Blood Pressure [BP] Blood Pressure Mean [BP] BP Systolic 134 BP Diastolic 62 Blood Pressure Source [BP] Blood Pressure Position [BP] Blood Pressure Location [BP] Pulse Ox 93 Oxygen Delivery Method 08/20/23 06:02 08/20/23 06:02 08/20/23 06:03 Temperature Temperature Source Pulse Rate 75 71 Respiratory Rate Blood Pressure Blood Pressure [BP] Blood Pressure Mean [BP] BP Systolic BP Diastolic Blood Pressure Source [BP] Blood Pressure Position [BP] Blood Pressure Location [BP] Pulse Ox 90 Oxygen Delivery Method 08/20/23 06:03 08/20/23 06:08 08/20/23 06:08 Temperature Temperature Source Pulse Rate 61 Respiratory Rate Blood Pressure Blood Pressure [BP] Blood Pressure Mean [BP] BP Systolic BP Diastolic Blood Pressure Source [BP] Blood Pressure Position [BP] Blood Pressure Location [BP] Pulse Ox 96 95 Oxygen Delivery Method 08/20/23 06:01 08/20/23 06:13 08/20/23 06:13 Temperature Temperature Source Pulse Rate 55 L Respiratory Rate 16 Blood Pressure Blood Pressure [BP] Blood Pressure Mean [BP] BP Systolic BP Diastolic Blood Pressure Source [BP] Blood Pressure Position [BP] Blood Pressure Location [BP] Pulse Ox 96 Oxygen Delivery Method 08/20/23 06:15 08/20/23 06:15 08/20/23 06:15 Temperature Temperature Source Temporal Pulse Rate 55 L Respiratory Rate Blood Pressure 152/78 H Blood Pressure [BP] Blood Pressure Mean [BP] BP Systolic 152 BP Diastolic 78 Blood Pressure Source [BP] Blood Pressure Position [BP] Blood Pressure Location [BP] Pulse Ox Oxygen Delivery Method 08/20/23 06:15 08/20/23 06:15 08/20/23 06:18 Temperature 98.2 F Temperature Source Pulse Rate 59 L Respiratory Rate 16 Blood Pressure Blood Pressure [BP] Blood Pressure Mean [BP] BP Systolic BP Diastolic Blood Pressure Source [BP] Blood Pressure Position [BP] Blood Pressure Location [BP] Pulse Ox Oxygen Delivery Method 08/20/23 06:18 08/20/23 06:23 08/20/23 06:23 Temperature Temperature Source Pulse Rate 56 L Respiratory Rate Blood Pressure Blood Pressure [BP] Blood Pressure Mean [BP] BP Systolic BP Diastolic Blood Pressure Source [BP] Blood Pressure Position [BP] Blood Pressure Location [BP] Pulse Ox 96 96 Oxygen Delivery Method 08/20/23 06:28 08/20/23 06:28 08/20/23 06:30 Temperature Temperature Source Pulse Rate 55 L Respiratory Rate Blood Pressure 152/66 H Blood Pressure [BP] Blood Pressure Mean [BP] BP Systolic 152 BP Diastolic 66 Blood Pressure Source [BP] Blood Pressure Position [BP] Blood Pressure Location [BP] Pulse Ox 97 Oxygen Delivery Method 08/20/23 06:30 08/20/23 06:33 08/20/23 06:33 Temperature Temperature Source Pulse Rate 54 L 63 Respiratory Rate Blood Pressure Blood Pressure [BP] Blood Pressure Mean [BP] BP Systolic BP Diastolic Blood Pressure Source [BP] Blood Pressure Position [BP] Blood Pressure Location [BP] Pulse Ox 96 Oxygen Delivery Method 08/20/23 06:38 08/20/23 06:38 08/20/23 06:43 Temperature Temperature Source Pulse Rate 57 L 58 L Respiratory Rate Blood Pressure Blood Pressure [BP] Blood Pressure Mean [BP] BP Systolic BP Diastolic Blood Pressure Source [BP] Blood Pressure Position [BP] Blood Pressure Location [BP] Pulse Ox 96 Oxygen Delivery Method 08/20/23 06:43 08/20/23 06:45 08/20/23 06:45 Temperature Temperature Source Pulse Rate 58 L Respiratory Rate Blood Pressure 143/75 H Blood Pressure [BP] Blood Pressure Mean [BP] BP Systolic 143 BP Diastolic 75 Blood Pressure Source [BP] Blood Pressure Position [BP] Blood Pressure Location [BP] Pulse Ox 96 Oxygen Delivery Method 08/20/23 06:48 08/20/23 06:48 08/20/23 06:53 Temperature Temperature Source Pulse Rate 60 56 L Respiratory Rate Blood Pressure Blood Pressure [BP] Blood Pressure Mean [BP] BP Systolic BP Diastolic Blood Pressure Source [BP] Blood Pressure Position [BP] Blood Pressure Location [BP] Pulse Ox 98 Oxygen Delivery Method 08/20/23 06:53 08/20/23 06:58 08/20/23 06:58 Temperature Temperature Source Pulse Rate 62 Respiratory Rate Blood Pressure Blood Pressure [BP] Blood Pressure Mean [BP] BP Systolic BP Diastolic Blood Pressure Source [BP] Blood Pressure Position [BP] Blood Pressure Location [BP] Pulse Ox 97 96 Oxygen Delivery Method 08/20/23 07:01 08/20/23 07:01 08/20/23 07:03 Temperature Temperature Source Pulse Rate 56 L 59 L Respiratory Rate Blood Pressure 135/59 H Blood Pressure [BP] Blood Pressure Mean [BP] BP Systolic 135 BP Diastolic 59 Blood Pressure Source [BP] Blood Pressure Position [BP] Blood Pressure Location [BP] Pulse Ox Oxygen Delivery Method 08/20/23 07:03 08/20/23 07:08 08/20/23 07:08 Temperature Temperature Source Pulse Rate 56 L Respiratory Rate Blood Pressure Blood Pressure [BP] Blood Pressure Mean [BP] BP Systolic BP Diastolic Blood Pressure Source [BP] Blood Pressure Position [BP] Blood Pressure Location [BP] Pulse Ox 99 98 Oxygen Delivery Method 08/20/23 07:13 08/20/23 07:13 08/20/23 07:15 Temperature Temperature Source Pulse Rate 60 Respiratory Rate Blood Pressure 141/64 H Blood Pressure [BP] Blood Pressure Mean [BP] BP Systolic 141 BP Diastolic 64 Blood Pressure Source [BP] Blood Pressure Position [BP] Blood Pressure Location [BP] Pulse Ox 96 Oxygen Delivery Method 08/20/23 07:15 08/20/23 07:18 08/20/23 07:18 Temperature Temperature Source Pulse Rate 59 L 66 Respiratory Rate Blood Pressure Blood Pressure [BP] Blood Pressure Mean [BP] BP Systolic BP Diastolic Blood Pressure Source [BP] Blood Pressure Position [BP] Blood Pressure Location [BP] Pulse Ox 96 Oxygen Delivery Method 08/20/23 07:23 08/20/23 07:23 08/20/23 07:28 Temperature Temperature Source Pulse Rate 59 L 63 Respiratory Rate Blood Pressure Blood Pressure [BP] Blood Pressure Mean [BP] BP Systolic BP Diastolic Blood Pressure Source [BP] Blood Pressure Position [BP] Blood Pressure Location [BP] Pulse Ox 97 Oxygen Delivery Method 08/20/23 07:28 08/20/23 07:31 08/20/23 07:31 Temperature Temperature Source Pulse Rate 64 Respiratory Rate Blood Pressure 149/101 H Blood Pressure [BP] Blood Pressure Mean [BP] BP Systolic 149 BP Diastolic 101 Blood Pressure Source [BP] Blood Pressure Position [BP] Blood Pressure Location [BP] Pulse Ox 96 Oxygen Delivery Method 08/20/23 07:33 08/20/23 07:33 08/20/23 07:33 Temperature Temperature Source Pulse Rate 65 Respiratory Rate Blood Pressure 146/67 H Blood Pressure [BP] Blood Pressure Mean [BP] BP Systolic 146 BP Diastolic 67 Blood Pressure Source [BP] Blood Pressure Position [BP] Blood Pressure Location [BP] Pulse Ox 95 Oxygen Delivery Method 08/20/23 07:15 08/20/23 07:30 08/20/23 07:30 Temperature Temperature Source Temporal Pulse Rate Respiratory Rate 18 18 Blood Pressure Blood Pressure [BP] Blood Pressure Mean [BP] BP Systolic BP Diastolic Blood Pressure Source [BP] Blood Pressure Position [BP] Blood Pressure Location [BP] Pulse Ox Oxygen Delivery Method 08/20/23 07:30 08/20/23 12:00 08/20/23 12:00 Temperature 98.2 F 98.9 F Temperature Source Temporal Temporal Pulse Rate 73 Respiratory Rate 16 Blood Pressure Blood Pressure [BP] 131/62 H Blood Pressure Mean [BP] 85 BP Systolic BP Diastolic Blood Pressure Source [BP] Monitor Blood Pressure Position [BP] Semi-Fowlers Blood Pressure Location [BP] Left Arm Pulse Ox 96 Oxygen Delivery Method Room Air Weight Weight: 204 lb 8 oz Body Mass Index (BMI) 34.0 Physical Exam Const alert and oriented x3 General Appearance: cooperative Orientation / Consciousness: awake, oriented to person, oriented to place and oriented to time Exam Limitations: no limitations HEENT normocephalic Head and Scalp: normal to inspection, normocephalic and atraumatic Face and Sinus: normal facial exam Eyes General Eye: normal appearance of both eyes Neck full ROM Chest Chest: symmetrical chest wall rise Resp normal respiratory effort and normal air movement Auscultation: clear to auscultation bilaterally Cardio regular rate, regular rhythm, S1 normal heart sound, S2 normal heart sound, no murmurs, no rub, no gallops and no clicks GI normal to inspection, nondistended, normoactive bowel sounds and non-tender appearance of the vagina normal Bladder / Kidney Exam: no CVA tenderness Back/Spine normal ROM Extremity normal to inspection and full ROM Skin no rashes or lesions noted Neuro oriented x3 and moves all extremities Sensorium / Orientation: awake, alert and oriented to person Labs Labs Labs: Blood Type A POSITIVE Antibody Screen NEGATIVE Hct 27.6 % (37-47) L Hgb 9.2 g/dL (12.0-15.0) L Syphilis Total Ab Non-reactive Rubella IgG Antibody 214.2 IU/mL Hep Bs Antigen Negative (Negative) Hepatitis C Ab (EIA) <0.1 s/co ratio (0.0-0.9) Chlamydia DNA (DAVID) Negative (Negative) N.gonorrhoeae DNA (DAVID) Negative (Negative) HIV 1&2 Antibody Non-Reactive (Nonreactive) Glucose 1 Hr 50 gm 82 mg/dL (70-140) Group B Strep DNA Negative (Negative) Rhogam given: No Assessment & Plan (1) 39 weeks gestation of : (2) Active labor: (3) Gestational thrombocytopenia: PLAN: Plan 1) Admit to labor and delivery 2) Routine labs 3) Continuous EFM 4) Epidural for pain management 5) [facility] physician and notified of patient admission, status, and above assessment and plan.
--- NOTE | 2023-08-20 13:27 | OP.PCM_ITS ---
Assessment & Plan (1) Vaginal delivery: (2) Uterine atony: Maternal Data Information NIKKIE Calculator Estimated Delivery Date Method Current WG Current Estimate 08/27/23 Manual 39w 0d Vaginal Delivery Maternal Presentation Maternal Presentation: Active Labor and Spontaneous Rupture of Membranes Operative Information Date of Procedure: 08/20/23 Pre-Operative Diagnosis: Active labor at term Post-Operative Diagnosis: Surgery / Procedure Performed: Spontaneous Vaginal Delivery Type of Anesthesia: Epidural Estimated Blood Loss: 200 ml Time of Delivery: 04:54 Findings Description of Procedure: Progressed to complete with urge to push. Epidural for pain management. of viable male infant over intact perineum. APGARS 9,9 respectively. Infant head delivered with body immediately forthcoming. Placed on maternal abdomen, strong cry. Mouth and nares suctioned for secretions. Pitocin started for active 3rd st age management. Cord doubly clamped and cut by FOB after pulsations ceased, delayed cord clamping. Placenta delivered intact via roberts, 3 vessel cord intact. Perineum intact. Fundus with uterine atony, bleeding minimal, Methergine given IM. Hemostasis achieved. EBL 200ml. Mom and baby stable, planning to breastfeed. Family bonding well. notified of delivery. Presentation: Vertex Amniotic Membrane Rupture Type: Spontaneous Amniotic Fluid Description: Clear Placental Delivery Description: Spontaneous Placenta Disposition: [facility] Cord Vessel Description: 3 Vessels Cord Entanglement: None Infant A Gender: Male (1 minute): 9 (5 minute): 9 Delayed Cord Clamping: Yes Post Vaginal Delivery Medications Given After Delivery: IV Pitocin, IM Pitocin and IM Methergin Episiotomy Description: None Laceration: None Complication Complications: None
[2023-08-21 00:10] VITALS: BP 125/64; PULSE 74; RESP 18; TEMP 36.4; O2SAT 98
[2023-08-21 04:55] VITALS: BP 128/64; PULSE 60; RESP 18; TEMP 36.4; O2SAT 97
[2023-08-21 05:08] LABS: Absolute Lymphocyte Count 1.87 X10^3/uL (0.83-4.51); Absolute Neutrophil Count 7.7 X10^3/uL (2.0-7.7); Basophil# 0.03 X10^3/uL; Basophil% 0.3 % (0-1); Eosinophil# 0.11 X10^3/uL; Eosinophils% 1.1 % (0-5); Hematocrit 25.6 % (37-47); Hemoglobin 8.3 g/dL (12.0-15.0); Lymphocyte # 1.87 X10^3/ul (0.83-4.51); Lymphocyte % 18.1 % (19-41); Mean Corp Hgb Conc 32.4 g/dL (32-36); Mean Corpuscular Hgb 29.5 pg (27.0-32.0); Mean Corpuscular Volume 91.1 fL (81-99); Mean Platelet Vol. 12.9 fl (6.2-12.0); Monocyte# 0.55 X10^3/uL; Monocyte% 5.3 % (0-10); NRBC Flagged by Analyzer 0 % (0-5); Neutrophil # 7.72 X10^3/uL (2.7-7.7); Neutrophil % 74.7 % (47-70); Platelet Count 100 K/mm3 (150-450); RBC Distribution Width CV 13.5 % (11.6-14.6); RBC Distribution Width SD 45.3 fl (35.1-43.9); Red Blood Count 2.81 M/mm3 (4.2-5.4); White Blood Count 10.3 K/mm3 (4.4-11.0)
--- NOTE | 2023-08-21 07:17 | PCM.DC.SUM ---
Providers Date of Admission: 08/19/23 Primary Care Physician: No Primary Care Phys Reason For Visit: VAGINAL DELIVERY Diagnosis Discharge Diagnosis (1) Vaginal delivery: Status: Acute Code(s): O80 - Encounter for full-term uncomplicated delivery (2) Uterine atony: Status: Acute Code(s): O62.2 - Other uterine inertia Medications at Discharge Home Medications Albuterol Inhaler 1 - 2 puff inhalation Q4H PRN PRN Allergies 02/11/18 montelukast 10 mg tablet 1 tab PO DAILY allergies 02/11/18 vits,calcium no.78-iron fumarate-folic acid 29 mg-1 mg tablet (Prenatabs FA) 1 tab PO DAILY 02/19/18 Hospital Course Operations None Procedures None Summary of Care Provided Minutes Spent on Discharge: 15 Hospital Course: Patient had . Hospital course was uneventful. Physical Exam Narrative Patient seen at bedside. in SCN. Formula feeding. Patient denies any headache, dizziness, SOB, or CP. Ambulating and voiding without difficulty. Lochia decreasing. Desires discharge and remaining on hotel status. Const alert and no apparent distress General Appearance: cooperative and comfortable Exam Limitations: no limitations HEENT normocephalic Eyes General Eye: normal appearance of both eyes Neck full ROM General: normal visual inspection Chest Chest: symmetrical chest wall rise Resp normal respiratory effort and normal air movement Effort and Inspection: symmetric chest movement Auscultation: clear to auscultation bilaterally Cardio regular rate and regular rhythm GI normal to inspection, nondistended, normoactive bowel sounds Back/Spine normal ROM Extremity full ROM and no calf tenderness General Extremity: normal exam except as noted Skin no rashes or lesions noted Neuro CN's II-XII intact bilaterally Psych mental status grossly normal Weight / BMI Weight Weight: 204 lb 8 oz Body Mass Index (BMI) 34.0 ABG / Lab / Microbiology Data 08/21/23 05:00 Laboratory: Laboratory Results - last 24 hr 08/20/23 12:18: WBC 13.5 H, RBC 3.10 L, Hgb 9.2 L, Hct 27.6 L, MCV 89.0, MCH 29.7, MCHC 33.3, RDW Std Deviation 43.8, RDW Coeff of Kristin 13.4, Plt Count 100 L, MPV 13.0 H 08/21/23 05:00: WBC 10.3, RBC 2.81 L, Hgb 8.3 L, Hct 25.6 L, MCV 91.1, MCH 29.5, MCHC 32.4, RDW Std Deviation 45.3 H, RDW Coeff of Kristin 13.5, Plt Count 100 L, MPV 12.9 H, Immature Gran % (Auto) 0.500, Neut % (Auto) 74.7 H, Lymph % (Auto) 18.1 L, Anson % (Auto) 5.3, Eos % (Auto) 1.1, Baso % (Auto) 0.3, Absolute Neuts (auto) 7.7, Absolute Lymphs (auto) 1.87, Nucleated RBC % 0 D/C Instructions Discharge Diet: No restrictions May resume sexual activity in: 6-8 weeks Weight Bearing Status: Weight bearing as tolerated Call your doctor if you observe: Fever of 101 or Higher, Inability to urinate, Using more than 1 pad per hour, Shortness of breath, Chest pain, Calf discomfort and Uncontrolled pain When: 2 weeks virtual visit/ 6 weeks in office Meaningful Use Info Meaningful Use Diagnoses (Choose all that apply): None applicable Discharge Plan Admission Admit Date/Time: 08/19/23 23:40 Primary Reason for Your Visit: Labor and Delivery Attending Provider: Irene Gardner Primary Care Provider: Lori Kc Primary Discharge Orders/Prescriptions Prescriptions: Continued Albuterol Inhaler 1 - 2 puff inhalation Q4H PRN PRN (Reason: Allergies) montelukast 10 MG tablet 1 tab PO DAILY Prenatabs FA 1 TABLET tablet 1 tab PO DAILY Referrals / Follow Up: Care Physician,Lori Primary [Primary Care Provider] - Mary Prieto CNM [Med Staff - Adv Practice Prof] - Disposition Disposition (needs filled in before D/C Order can be placed): Home, Self Care
[2023-08-21 08:13] VITALS: BP 131/92; PULSE 60; RESP 16; TEMP 36.3
== END 2023-08-21 08:35 | disposition home or self-care (01) | DRG 560 ==
PROVIDERS: Admitting Provider Advanced Practice Midwife; Referring Provider Advanced Practice Midwife; Visit Provider Advanced Practice Midwife
DX: O62.2 Other uterine inertia (principal); Z37.0 Single live birth; J45.909 Unspecified asthma, uncomplicated; Z3A.39 39 weeks gestation of pregnancy; O99.52 Diseases of the respiratory system complicating childbirth
CPT/HCPCS: 59025; 59050; 84112; 85025; 85027; 86780; 86850; 86900; 86901; 99221; J7120; A4216; G0378; J2405

== ENCOUNTER 2023-10-24 07:02 | Day surgery (SDC) | payer MEDICAID, SELFPAY ==
[2023-10-24] VITALS (9 sets, daily range): BP systolic 121–148; BP diastolic 73–92; PULSE 68–84; RESP 16; TEMP 36.2–36.4; O2SAT 92–99; BMI 27.1
[2023-10-24] MEDS: Lactated Ringers 1,000 ML 15 ML IV (07:34)
[2023-10-24 07:42] LABS: Hematocrit 38.3 % (37-47); Mean Corp Hgb Conc 31.3 g/dL (32-36); Mean Corpuscular Hgb 26.3 pg (27.0-32.0); Mean Corpuscular Volume 83.8 fL (81-99); Mean Platelet Vol. 12.3 fl (6.2-12.0); Platelet Count 199 K/mm3 (150-450); RBC Distribution Width CV 13.8 % (11.6-14.6); RBC Distribution Width SD 42.3 fl (35.1-43.9); Red Blood Count 4.57 M/mm3 (4.2-5.4); White Blood Count 9.5 K/mm3 (4.4-11.0)
[2023-10-24 07:48] LABS: Internal QC Validated? YES +Cl - CLEAR BKGD; Pregnancy, Urine Negative Negative
[2023-10-24 07:49] LABS: Record Kit Lot#,Urine Preg HCG0000718089
[2023-10-24 07:55] LABS: International Normalized Ratio 1.1; Prothrombin Time (Protime)PT. 14.5 SECONDS (11.7-14.9)
[2023-10-24 07:56] LABS: Partial Thromboplast Time 30.9 Seconds (24.1-36.2)
--- NOTE | 2023-10-24 08:09 | PCM.HP.OB ---
HPI - General General Date of Admission: 10/24/23 Date of Service: 10/24/23 Chief Complaint: request for sterilization HPI Narrative WALTER BENITEZ, is a 33 F who presents for scheduled surgery. She is 100% certain she does not desire future . She requests to proceed with sterilization. Maternal Data Information NIKKIE Calculator Estimated Delivery Date Method Current WG Current Estimate 08/27/23 Manual 48w 2d PFSH PFSH Medical History (Updated 10/24/23 @ 08:[address] Ana Alexis, DO) Cancer Alcohol use Low iron Easy bruising Asthma Smoker Uterine atony Vaginal delivery Gestational thrombocytopenia Active labor 39 weeks gestation of Thyroid disorder Asthma affecting in third trimester Home Medications ?Medication ?Instructions ?Recorded ?Last Taken ?Type Albuterol Inhaler 1 - 2 puff inhalation Q4H PRN PRN 02/11/18 03/05/18 08:00 History Allergies montelukast 10 mg tablet 1 tab PO DAILY allergies 02/11/18 10/23/23 History loratadine 10 mg tablet (Claritin) 10 mg PO DAILY 10/13/23 10/23/23 History Allergy/AdvReac Type Severity Reaction Status Date / Time adhesive tape Allergy Itching Verified 10/24/23 07:30 codeine Allergy Itching Verified 10/24/23 07:30 guaifenesin Allergy Itching Verified 10/24/23 07:30 Surgical History (Updated 10/13/23 @ 13:18 by Sharri Brennan) History of partial thyroidectomy Social History Smoking Status: Current every day smoker tobacco type: cigarettes History 3 Elective abortions Hx Para 3 Spontaneous abortions Hx # Term Pregnancies Ectopic pregnancies Hx # Pregnancies Multiple births # of living children Vital Signs Vital Signs Vital Signs: 10/24/23 07:34 10/24/23 07:34 Temperature 97.4 F L Temperature Source Temporal Pulse Rate 84 Respiratory Rate 16 Respiratory Pattern Normal Pulse Ox 99 Oxygen Delivery Method Room Air Weight Weight: 163 lb 2.273 oz Body Mass Index (BMI) 27.1 Physical Exam Const alert and no apparent distress General Appearance: comfortable HEENT normocephalic Resp normal respiratory effort GI non-distended Labs Labs Labs: Blood Type A POSITIVE Antibody Screen NEGATIVE Hct 38.3 % (37-47) Hgb 12.0 g/dL (12.0-15.0) Syphilis Total Ab Non-reactive Rubella IgG Antibody 214.2 IU/mL Hep Bs Antigen Negative (Negative) Hepatitis C Ab (EIA) <0.1 s/co ratio (0.0-0.9) Chlamydia DNA (DAVID) Negative (Negative) N.gonorrhoeae DNA (DAVID) Negative (Negative) HIV 1&2 Antibody Non-Reactive (Nonreactive) Glucose 1 Hr 50 gm 82 mg/dL (70-140) Group B Strep DNA Negative (Negative) Rhogam given: No Assessment & Plan (1) Request for sterilization: PLAN: Discussed r/b/a laparoscopic bilateral salpingectomy and consent signed in office. The patient desires to proceed with sterilization. She understands it is permanent and irreversible, and there is a risk of regret.
--- NOTE | 2023-10-24 08:45 | FALS_PTH ---
PATIENT: WALTER BENITEZ LOC: [facility] [place] U#:[id number] AGE/SX: 33/F ROOM: RE10/24/[address]: Dr. Ana Alexis DO : 1990 BED: DIS: 10/24/2023 SPEC #: [id number] RECD: 10/24/23 10:39 STATUS: ADINA RELuis Carlos #: [id number] MATEUSZ: 10/24/23 08:[address]: Ana Alexis DEPT: SURGICAL PATHOLOGY RECD BY: Katie Russell ENTERED: 10/24/23 10:59 SP TYPE: FALL TUBES OTHR DR: No Primary Care Phys Tissues: Fallopian tube Procedures: Surgery Specimen Level II HEADER OPERATION: Laparoscopic salpingectomy PRE-OP DIAGNOSIS: Desires sterilization TISSUE SUBMITTED: Bilateral fallopian tubes MICROSCOPIC DIAGNOSIS Right and left fallopian tubes, bilateral salpingectomies: Complete cross-sections of two fallopian tubes with minimal chronic inflammation. AM: 10/27/2023 MICROSCOPIC DESCRIPTION Slides are reviewed. GROSS DESCRIPTION Received in fixative is one container labeled with the patient's name and designated bilateral fallopian tubes. The specimen consists of bilateral fallopian tubes including fimbrial ends measuring 7.5 cm in length and 0.6 cm in diameter and 7.0cm in length and 0.6cm in diameter. The fallopian tubes are not identified as right or left. Sections reveal unremarkable cut surfaces. Purchaser sections are submitted in two cassettes with each cassette containing one fallopian tube. / DAMION: 10/24/23 TC:3 CPT: 66800 x2
[2023-10-24 08:50] LABS: AST(SGOT) 18 U/L (15-37); Alanine Aminotransfer ALT/SGPT 36 U/L (13-56); Albumin, Serum 3.8 g/dL (3.2-5.0); Alkaline Phosphatase 59 U/L (45-117); Bilirubin, Direct 0.12 mg/dL (0.00-0.30); Globulin 3.5 g/dL (2.2-4.2); Protein, Total 7.3 g/dL (6.4-8.2)
[2023-10-24] MEDS: Bupivacaine 0.5% PF 10 ML VIAL (09:30)
--- NOTE | 2023-10-24 09:50 | PCM.OPRPT ---
Problems Associated Problem List Diagnoses (1) Request for sterilization: Report of Operation Date of Procedure: 10/24/23 Pre-Operative Diagnosis: Request for sterilization Post-Operative Diagnosis: As above Surgery/Procedure Performed:: Laparoscopic bilateral salpingectomy Description of Surgical Findings:: Normal uterus and bilateral adnexa. Normal appearing pelvis Surgeon: Ana Alexis event services manager: Hong Parra MS3 Type of Anesthesia: General Special Medications: None Specimen's removed: Bilateral fallopian tubes Drains: None Estimated Blood Loss (mL): < 20 Fluids Replaced: 900 mL Description of Procedure: Patient was taken to the operating room where general anesthesia was induced. She was prepped and draped in the dorsal lithotomy position using yellowfin stirrups. From below a weighted speculum was placed in the vagina to expose the cervix. A single-tooth tenaculum was placed on the anterior lip of the cervix. Uterine manipulator was placed. The single-tooth tenaculum and weighted speculum were removed. Gloves were changed and attention was turned to the abdominal portion of the procedure. Local was infiltrated at all port sites. An infraumbilical incision was made to accommodate a 5 mm port. The 5 mm port was placed under direct visualization. Once confirmed intraperitoneal CO2 insufflation was initiated. The patient was placed in Trendelenburg position. A right lateral 5 mm port was placed. A left lateral 5 mm port was placed. The uterus was upheld from below. The pelvis was normal-appearing. The right fallopian tube was followed out to the fimbriated end and elevated out of the pelvis. The LigaSure device was used to serially clamp, cauterize, and transect along the mesosalpinx hugging adjacent to the right fallopian tube until reaching level of the cornua. Once at the level of the cornua the fallopian tube was transected and removed. The left fallopian tube was followed out to the fimbriated end and elevated out of the pelvis. Using the LigaSure device the mesosalpinx was serially clamped, cauterized, and transected hugging adjacent to the fallopian tube until reaching the level of the cornua. Once at the level of the cornua the fallopian tube was transected and removed. The bilateral fallopian tubes were sent to pathology for review. Hemostasis was noted. The ports were removed and the abdomen was exsufflated. 4 Monocryl was used to close the port sites. Glue was placed over the port sites. The manipulator was removed from the uterus below. A vaginal sweep was performed. Instrument, sponge, sharp counts were correct. The patient was taken to the recovery room in stable condition. Professor Of Forest Planning Reena Parra MS3 assisted with holding the camera, elevating the fallopian tubes, and closure of port sites. Grafts/Implants Used: None Procedure Start Time: 09:15 Procedure Stop Time: 09:45 Complications None Admit VTE Documentation VTE Present on Admission: No VTE Mechan Device Prophylaxis: SCD's
--- NOTE | 2023-10-24 10:05 | DCINST_ITS ---
Discharge Instructions Diet Discharge Diet: No restrictions Activity Discharge Activity: May Drive (once you are more than 24 hours out from surgery, and you can slam on a brake or turn a steering wheel sharply) and May Shower (once you are more than 24 hours out from surgery) May resume sexual activity in: 1-2 weeks (nothing in the vagina and no soaking in water while having vaginal bleeding for 1-2 weeks) Ice area for (Minutes): 15 Weight Bearing Status: Weight bearing as tolerated Lifting Restrictions: nothing heavier than 10-15 pounds Dressing / Incision Call your doctor if your incision/area has: Continuous Slow Oozing, Sudden Increased Bleeding, Increased Pain/ Swelling, Increased Redness, Foul Smelling Discharge and Swelling at the incision site Call your doctor if you observe: Fever of 101 or Higher, Coldness, Increased Pain, Numbness or Tingling, Change in Color, Inability to urinate, Inability to have a bowel movement, Using more than 1 pad per hour, Shortness of breath, Dizziness, Fainting spells, Swelling in the ankles, Chest pain, Prolonged hiccupping, Increased palpitations (irregular heartbeat), Calf discomfort and Uncontrolled pain Suture Line Care: Avoid Pulling/Pushing and Avoid Pinching/Bending Cleanse incision/area with: Soap & Water (the glue will fall off over time in the shower and there are sutures underneath that will dissolve ) Follow Up Care Please Follow Up With: Ana Alexis DO When: 1-2 weeks Test Results: Test results from this visit will be discussed in further detail at your follow- up appointment, if applicable. Discharge Plan Admission Primary Reason for Your Visit: Surgery Attending Provider: Ana Alexis Primary Care Provider: Lori cK Primary Instructions Patient Instructions: Lap Fallopian Tube Ligation Dc Print Language: Hong Konger Discharge Orders/Prescriptions Prescriptions: New ibuprofen 600 mg tablet 600 mg PO Q6H PRN (Reason: pain) Qty: 30 0RF oxycodone-acetaminophen [Percocet] 5-325 mg tablet 1 tab PO Q6H PRN (Reason: pain) 7 Days Qty: 5 0RF Continued Albuterol Inhaler 1 - 2 puff inhalation Q4H PRN PRN (Reason: Allergies) montelukast 10 MG tablet 1 tab PO DAILY loratadine [Claritin] 10 mg tablet 10 mg PO DAILY Referrals / Follow Up: Care Physician,No Primary [Primary Care Provider] - Disposition Disposition (needs filled in before D/C Order can be placed): Home, Self Care
[2023-10-24] MEDS: Oxycodone/Apap 5/325 Tablet PO (10:55)
== END 2023-10-24 11:18 | disposition home or self-care (01) ==
LOC: SDC 07:06 → AC 07:06
PROVIDERS: Anesthesiology; Referring Provider Obstetrics & Gynecology; Visit Provider Obstetrics & Gynecology
PROC: (CPT 58661; principal; 2023-10-24 08:30)
DX: Z30.2 Encounter for sterilization (principal); F17.210 Nicotine dependence, cigarettes, uncomplicated; J45.909 Unspecified asthma, uncomplicated; E89.0 Postprocedural hypothyroidism
CPT/HCPCS: 58661; 00840; 80076; 81025; 85027; 85610; 85730; 86850; 86900; 86901; 88302; J7120; J2405